=== PATIENT | female | born 1975 | race Caucasian/White ===

== ENCOUNTER 2017-05-11 02:29 | Emergency (ER) | payer OTHER, SELFPAY ==
[2017-05-11] MEDS ORDERED: BABY ASPIRIN 81 MG CHEW PO ONE (02:34)
[2017-05-11] MEDS ORDERED: Nitrostat 0.4 MG (ED) SL ONE ×2 (02:34→02:54)
[2017-05-11] MEDS ORDERED: Sodium Chloride 0.9% 1000 ML 1,000 ML IV SCH (02:45)
--- NOTE | 2017-05-11 02:46 | ERPHSYRPT ---
- History of Present Illness Time Seen by Provider: 05/11/17 02:35 Historian: patient Exam Limitations: clinical condition Physician History: PATIENT WITH HISTORY OF TYPE 2 DIABETES COMPLAINS SHARP PAINS IN CHEST AFTER AWAKENING FROM SLEEP ASSOCIATED WITH DIFFICULTY AND RAPID BREATHING. STATES PAIN WORSE UPON INSPIRATION AND MOTION OF TORSO. 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 HAS CHRONIC NUMBNESS IN BOTH HANDS, AND NEW NUMBNESS AROUND LIPS, FINGERS AND TOES. DENIES FEVER, CHILLS. Timing/Duration: today Activities at Onset: none Quality: sharpness Location: substernal Chest Pain Radiation: no radiation Severity of Pain-Max: moderate Severity of Pain-Current: moderate Modifying Factors: Improves With: breathing, change in position Associated Symptoms: hurts to breathe Nitro Today/Relief: no nitro taken today Aspirin Treatment Today: 81 mg x 4, provided by ED Allergies/Adverse Reactions: tomato Allergy (Verified 05/11/17 03:00) Home Medications: Metformin HCl [Metformin HCl ER] 500 mg PO BID 11/01/16 [History] Hx Tetanus, Diphtheria Vaccination/Date Given: Yes Hx Influenza Vaccination/Date Given: No Hx Pneumococcal Vaccination/Date Given: No - Review of Systems Constitutional: No Fever, No Chills Eyes: No Symptoms Ears, Nose, & Throat: No Symptoms Respiratory: Dyspnea, No Cough Cardiac: Chest Pain, No Edema, No Syncope Abdominal/Gastrointestinal: No Symptoms, No Abdominal Pain, No Nausea, No Vomiting, No Diarrhea Genitourinary Symptoms: No Symptoms, No Dysuria Musculoskeletal: No Symptoms, No Back Pain, No Neck Pain Skin: No Symptoms, No Rash Neurological: Parasthesia, No Dizziness, No Focal Weakness, No Sensory Changes Psychological: No Symptoms Endocrine: No Symptoms All Other Systems: Reviewed and Negative - Past Medical History Pertinent Past Medical History: Yes Neurological History: No Pertinent History ENT History: No Pertinent History Cardiac History: High Cholesterol Endocrine Medical History: Diabetes Type II Musculoskeletal History: No Pertinent History GI Medical History: No Pertinent History History: No Pertinent History Psycho-Social History: No Pertinent History Female Reproductive Disorders: No Pertinent History Other Medical History: CHRONIC HIP PAIN - Past Surgical History Past Surgical History: Yes Neuro Surgical History: No Pertinent History Respiratory: No Pertinent History Musculoskeletal: No Pertinent History Female Surgical History: Tubal Ligation Other Surgical History: oral surgery - Social History Smoking Status: Current every day smoker How long have you smoked: 20 years Exposure to second hand smoke: Yes Drug Use: marijuana Patient Lives Alone: No Significant Family History: hypertension (mother) - Female History Hx Now: No - Nursing Vital Signs Nursing Vital Signs: Initial Vital Signs Temperature 98.2 F Temperature Source Oral Pulse Rate 87 Respiratory Rate 18 Blood Pressure [Right Arm] 134/76 Pain Intensity 3 - Physical Exam General Appearance: mild distress, alert, other (HYPERVENTILATION) Eye Exam: PERRL/EOMI, eyes nml inspection Ears, Nose, Throat Exam: normal ENT inspection, moist mucous membranes Neck Exam: normal inspection, non-tender, supple, full range of motion Respiratory Exam: normal breath sounds, chest tenderness (PARASTERNAL TENDERNESS T-3 TO T-5), lungs clear, No respiratory distress Cardiovascular Exam: regular rate/rhythm, normal heart sounds Gastrointestinal/Abdomen Exam: soft, No tenderness, No mass Back Exam: normal inspection, No CVA tenderness, No vertebral tenderness Extremity Exam: normal inspection, normal range of motion Neurologic Exam: alert, oriented x 3, cooperative, normal mood/affect, sensation nml, No motor deficits Skin Exam: normal color, warm, dry SpO2 Interpretation: normal SpO2: 100 Oxygen Delivery: Room Air - Course EKG Interpreted by Me: RATE, NORMAL AXIS, 1st degree AV Block (RATE OF 98) - Radiology Exams Chest X-ray Interpretation: Interpreted by me, Negative, No Infiltrates Ordered Tests: Active Orders 24 hr Category Date Time Status Baling Machine Tender STAT Care 05/11/17 02:34 Active EKG-ER Only STAT Care 05/11/17 02:34 Active IV Insertion STAT Care 05/11/17 02:34 Active Oxygen-ED Only NASAL CANNULA 2 lpm Care 05/11/17 02:34 Active CHEST 1 VIEW (PORTABLE) Stat Exams 05/11/17 03:38 Taken ARTERIAL BLOOD GASES Stat Lab 05/11/17 02:33 Completed CBC W DIFF Stat Lab 05/11/17 02:40 Completed CMP Stat Lab 05/11/17 02:40 Completed D-DIMER QUANTITATION Stat Lab 05/11/17 02:40 Completed PROTIME WITH INR Stat Lab 05/11/17 02:40 Completed TROPONIN Q3H Lab 05/11/17 02:40 Completed TROPONIN Q3H Lab 05/11/17 05:45 Ordered TROPONIN Q3H Lab 05/11/17 08:45 Ordered TROPONIN Q3H Lab 05/11/17 11:45 Ordered TROPONIN Q3H Lab 05/11/17 14:45 Ordered Medication Summary Generic Name Dose Route Start Last Admin Trade Name Christine PRN Reason Stop Dose Admin Sodium Chloride 1,000 mls @ 100 mls/hr 05/11/17 02:45 05/11/17 02:56 Sodium Chloride 0.9% 1000 Ml IV 06/10/17 02:44 100 mls/hr .Q10H JEFFERY Administration Discontinued Medications Generic Name Dose Route Start Last Admin Trade Name Christine PRN Reason Stop Dose Admin Aspirin 324 mg 05/11/17 02:34 05/11/17 02:55 Baby Aspirin 81 Mg Chew PO 05/11/17 02:35 324 mg STAT ONE Administration Aspirin Confirm 05/11/17 02:54 Baby Aspirin 81 Mg Chew Administered 05/11/17 02:55 Dose 324 mg .ROUTE .STK-MED ONE Fentanyl Citrate 100 mcg 05/11/17 03:31 05/11/17 03:35 Sublimaze 100 Mcg/2 Ml IV 05/11/17 03:32 100 mcg STAT ONE Administration Fentanyl Citrate Confirm 05/11/17 03:33 Sublimaze 100 Mcg/2 Ml Administered 05/11/17 03:34 Dose 100 mcg .ROUTE .STK-MED ONE Ketorolac Tromethamine 30 mg 05/11/17 03:31 05/11/17 03:37 Toradol 30 Mg Injection IV 05/11/17 03:32 30 mg STAT ONE Administration Ketorolac Tromethamine Confirm 05/11/17 03:33 Toradol 30 Mg Injection Administered 05/11/17 03:34 Dose 30 mg .ROUTE .STK-MED ONE Lorazepam 2 mg 05/11/17 03:14 05/11/17 03:22 Ativan 2 Mg/1 Ml Vial IV 05/11/17 03:15 2 mg STAT ONE Administration Lorazepam Confirm 05/11/17 03:20 Ativan 2 Mg/1 Ml Vial Administered 05/11/17 03:21 Dose 2 mg .ROUTE .STK-MED ONE Nitroglycerin 0.4 mg 05/11/17 02:34 05/11/17 02:56 Nitrostat 0.4 Mg (Ed) SL 05/11/17 02:35 0.4 mg STAT ONE Administration Nitroglycerin Confirm 05/11/17 02:54 Nitrostat 0.4 Mg (Ed) Administered 05/11/17 02:55 Dose 0.4 mg SL .STK-MED ONE Nitroglycerin 1 gm 05/11/17 03:49 Nitro-Bid 2% Ud Packets TOP 05/11/17 03:50 STAT ONE Ondansetron HCl 4 mg 05/11/17 03:31 05/11/17 03:47 Zofran 4 Mg/2 Ml Vial IV 05/11/17 03:32 4 mg STAT ONE Administration Ondansetron HCl Confirm 05/11/17 03:47 Zofran 4 Mg/2 Ml Vial Administered 05/11/17 03:48 Dose 4 mg .ROUTE .STK-MED ONE Lab/Rad Data: Laboratory Result Diagrams 05/11/17 02:40 05/11/17 02:40 Laboratory Results 05/11/17 05/11/17 05/11/17 Range/Units 02:40 02:40 02:40 WBC (4.0-10.5) K/mm3 RBC (4.1-5.4) M/mm3 Hgb (12.0-16.0) gm/dl Hct (35-47) % MCV (78-100) fl MCH (26-32) pg MCHC (32-36) g/dl RDW (11.5-14.0) % Plt Count (150-450) K/mm3 MPV (6-9.5) fl Gran % (36.0-66.0) % Lymphocytes % (24.0-44.0) % Monocytes % (0.0-12.0) % Eosinophils % (0.00-5.0) % Basophils % (0.0-0.4) % Basophils # (0-0.4) INR 0.97 (0.8-3.0) D-Dimer 387 (0-500) ng/mL Puncture Site pCO2 (35-45) mmHg pO2 (75-100) mmHg Base Excess (-2.0-2.0) O2 Saturation (94-100) g/dF ABG pH (7.35-7.45) ABG HCO3 (22-28) ABG O2 Sat (Measured) (95-100) % John Test A-a Gradient a/A Ratio Hemoglobin Carboxyhemoglobin (0.0-6.9) % THgb Methemoglobin (1.4-1.5) % Potassium 3.8 (3.5-5.1) Temperature C POC O2 Flow Rate % Sodium 138 (136-145) mEq/L Chloride 103 (98-107) mEq/L Carbon Dioxide 19.8 L (21-32) mEq/L Anion Gap 19.0 H (5-15) MEQ/L BUN 11 (9-20) mg/dL Creatinine 0.82 (0.55-1.30) mg/dl Estimated GFR > 60 ML/MIN Glucose 272 H (70-110) MG/DL Calcium 9.2 (8.5-10.1) mg/dL Total Bilirubin 0.50 (0.2-1.0) mg/dL AST 65 H (15-37) U/L ALT 48 (12-78) U/L Alkaline Phosphatase 87 (46-116) U/L Troponin I < 0.017 (0.000-0.056) ng/ml Serum Total Protein 7.8 (6.4-8.2) gm/dL Albumin 3.8 (3.4-5.0) g/dL 05/11/17 05/11/17 Range/Units 02:40 02:33 WBC 8.0 (4.0-10.5) K/mm3 RBC 4.87 (4.1-5.4) M/mm3 Hgb 15.0 (12.0-16.0) gm/dl Hct 43.4 (35-47) % MCV 89.1 (78-100) fl MCH 30.8 (26-32) pg MCHC 34.6 (32-36) g/dl RDW 12.7 (11.5-14.0) % Plt Count 218 (150-450) K/mm3 MPV 9.4 (6-9.5) fl Gran % 59.8 (36.0-66.0) % Lymphocytes % 31.2 (24.0-44.0) % Monocytes % 7.0 (0.0-12.0) % Eosinophils % 1.6 (0.00-5.0) % Basophils % 0.4 (0.0-0.4) % Basophils # 0.03 (0-0.4) INR (0.8-3.0) D-Dimer (0-500) ng/mL Puncture Site RIGHT RADIAL pCO2 20 L* (35-45) mmHg pO2 120 H (75-100) mmHg Base Excess -0.6 (-2.0-2.0) O2 Saturation 95.6 (94-100) g/dF ABG pH 7.58 H* (7.35-7.45) ABG HCO3 18.8 L (22-28) ABG O2 Sat (Measured) 99.8 (95-100) % John Test YES A-a Gradient 5 a/A Ratio 0.96 Hemoglobin 14.8 Carboxyhemoglobin 3.1 (0.0-6.9) % THgb Methemoglobin 1.1 L (1.4-1.5) % Potassium 3.8 (3.5-5.1) Temperature 37.0 C POC O2 Flow Rate 21 % Sodium (136-145) mEq/L Chloride (98-107) mEq/L Carbon Dioxide (21-32) mEq/L Anion Gap (5-15) MEQ/L BUN (9-20) mg/dL Creatinine (0.55-1.30) mg/dl Estimated GFR ML/MIN Glucose (70-110) MG/DL Calcium (8.5-10.1) mg/dL Total Bilirubin (0.2-1.0) mg/dL AST (15-37) U/L ALT (12-78) U/L Alkaline Phosphatase (46-116) U/L Troponin I (0.000-0.056) ng/ml Serum Total Protein (6.4-8.2) gm/dL Albumin (3.4-5.0) g/dL - Progress Progress: improved, re-examined Progress Note: 05/11/17 03:2PATIENT GIVEN IV ATIVAN 2MG, 4 BABY ASPIRIN, NITROGLYCERIN 0.4MG SL 05/11/17 03:55 STATES HER PAIN IS MARKEDLY IMPROVED, REFUSES ADMISSION, RISK VS BENEFIT DISCUSSED WITH PATIENT. PATIENT SIGNS AMA. Counseled pt/family regarding: lab results, diagnosis, need for follow-up - Departure Time of Disposition: 04:00 Departure Disposition: In-patient Admission Clinical Impression: ACUTE CHEST PAIN, HYPERVENTIATIO SYNDROME Condition: Stable Critical Care Time: No Referrals: SHAE KHAN [Primary Care Provider] - Additional Instructions: TORADOL 10MG EVERY 6 HOURS FOR PAIN NEEDED. RETURN TO EMERGENCY FOR INCREASING PAIN DISCOMFORT. FOLLOWUP WITH YOUR FAMILY PHYSICIAN IN 4-5 DAYS. Prescriptions: Ketorolac Tromethamine [Toradol] 10 mg PO Q6H PRN PRN #20 tablet PRN Reason: Pain
[2017-05-11 02:47] LABS: A-aADO2 5; ARTERIAL BLD GAS O2 SATURATION 99.8 % (95-100); ARTERIAL BLOOD GAS BASE EXCESS -0.6 (-2.0-2.0); ARTERIAL BLOOD GAS FIO2 21 %; ARTERIAL BLOOD GAS PO2 120 mmHg (75-100)
[2017-05-11 02:48] LABS: ALLEN TEST OK? YES; ARTERIAL BLOOD GAS pH 7.58 (7.35-7.45)
[2017-05-11] MEDS ORDERED: Sodium Chloride 0.9% 1000 ML 1,000 ML ONE (02:54)
[2017-05-11] MEDS ORDERED: BABY ASPIRIN 81 MG CHEW ONE (02:54)
[2017-05-11 03:04] LABS: BASOPHIL % 0.4 % (0.0-0.4); Eosinophil % 1.6 % (0.00-5.0); Granulocytes % 59.8 % (36.0-66.0); INR 0.97 (0.8-3.0); Lymphocytes % 31.2 % (24.0-44.0); Mean Cell Volume 89.1 fl (78-100); Mean Corpuscular Hemoglobin 30.8 pg (26-32); Mean Platelet Volume 9.4 fl (6-9.5); Platelet Count 218 K/mm3 (150-450); Red Blood Count 4.87 M/mm3 (4.1-5.4); Red Cell Distribution Width 12.7 % (11.5-14.0)
[2017-05-11 03:12] LABS: ALBUMIN 3.8 g/dL (3.4-5.0); ALKALINE PHOSPHATASE 87 U/L (46-116); BLOOD UREA NITROGEN 11 mg/dL (9-20); CHLORIDE 103 mEq/L (98-107); Carbon Dioxide 19.8 mEq/L (21-32); Glucose 272 MG/DL (70-110); Potassium 3.8 mEq/L (3.5-5.1); SGOT/AST 65 U/L (15-37); SGPT/ALT 48 U/L (12-78); SODIUM 138 mEq/L (136-145); Total Protein 7.8 gm/dL (6.4-8.2)
[2017-05-11] MEDS ORDERED: Ativan 2 MG/1 ML VIAL IV ONE (03:14)
[2017-05-11] MEDS ORDERED: Ativan 2 MG/1 ML VIAL ONE (03:20)
[2017-05-11 03:30] VITALS: O2SAT 100
[2017-05-11] MEDS ORDERED: Zofran 4 MG/2 ML VIAL IV ONE (03:31)
[2017-05-11] MEDS ORDERED: SUBLIMAZE 100 MCG/2 ML IV ONE (03:31)
[2017-05-11] MEDS ORDERED: TORAdol 30 mg Injection IV ONE (03:31)
[2017-05-11] MEDS ORDERED: TORAdol 30 mg Injection ONE (03:33)
[2017-05-11] MEDS ORDERED: SUBLIMAZE 100 MCG/2 ML ONE (03:33)
[2017-05-11] MEDS ORDERED: Zofran 4 MG/2 ML VIAL ONE (03:47)
[2017-05-11] MEDS ORDERED: NITRO-BID 2% UD PACKETS TOP ONE (03:49)
[2017-05-11 04:01] VITALS: BP 138/76; PULSE 92
--- NOTE | 2017-05-11 08:57 | XRAY ---
Indication: Dyspnea. Comparison: August 14, 2013. Portable chest remains slightly underinflated and clear. Heart is not enlarged. Vascularity normal. Bony thorax intact. Impression: Stable nonacute chest.
== END 2017-05-11 04:15 | disposition left against medical advice (07) ==
LOC: ED 02:29
DX: R07.89 Other chest pain (principal); F45.8 Other somatoform disorders; E11.9 Type 2 diabetes mellitus without complications; R20.0 Anesthesia of skin; E78.00 Pure hypercholesterolemia, unspecified; Z79.84 Long term (current) use of oral hypoglycemic drugs
CPT/HCPCS: 36000; 36415; 36600; 71010; 80053; 82375; 82803; 84484; 85025; 85379; 85610; 93005; 93041; 96360; 96374; 96375; 96376; 99284; J1885; J2060; J2405; J3010; A9270-GY

== ENCOUNTER 2017-08-28 10:16 | Observation (INO) | payer OTHER ==
--- NOTE | 2017-08-28 11:13 | ERPHSYRPT ---
- History of Present Illness Time Seen by Provider: 08/28/17 10:36 Source: patient Exam Limitations: no limitations Patient Subjective Stated Complaint: Pt states "I have another abscess on my butt. I have had three and they have never went away. The last one busted on its own but this one is really tender and swollen" Triage Nursing Assessment: Pt alert and oriented X 3, skin pwd. pt ambulates with a waddleing gait. Pt able to speak in full clear sentencs. Physician History: 41-year-old white female who states she's had several abscesses on her buttocks for several months complains of abscess in her buttockswhich is enlarged and painful symptoms for several days. Patient states she has had these abscesses before she feels like they have never really gone away. Past medical history includes hypercholesterolemia, diabetes, chronic hip pain Past surgical history includes tubal ligation, oral surgery Timing/Duration: day(s) (several days) Severity: moderate Modifying Factors: Improves With: nothing Associated Symptoms: other (large abscess on buttocks), No nausea, No vomiting, No abdominal pain, No shortness of breath, No heartburn, No diaphoresis, No cough, No chills, No chest pain, No fever, No headaches, No loss of appetite, No malaise, No rash, No syncope, No seizure Allergies/Adverse Reactions: tomato Allergy (Verified 05/11/17 03:00) Home Medications: Metformin HCl [Metformin HCl ER] 500 mg PO BID 11/01/16 [History] Hx Tetanus, Diphtheria Vaccination/Date Given: Yes Hx Influenza Vaccination/Date Given: No Hx Pneumococcal Vaccination/Date Given: No Immunizations Up to Date: Yes - Review of Systems Constitutional: No Fever, No Chills Eyes: No Symptoms Ears, Nose, & Throat: No Symptoms Respiratory: No Cough, No Dyspnea Cardiac: No Chest Pain, No Edema, No Syncope Abdominal/Gastrointestinal: No Abdominal Pain, No Nausea, No Vomiting, No Diarrhea Genitourinary Symptoms: No Dysuria Musculoskeletal: No Back Pain, No Neck Pain Skin: Other (large abscess on buttocks) Neurological: No Dizziness, No Focal Weakness, No Sensory Changes Psychological: No Symptoms Endocrine: No Symptoms All Other Systems: Reviewed and Negative - Past Medical History Pertinent Past Medical History: Yes Neurological History: No Pertinent History ENT History: No Pertinent History Cardiac History: High Cholesterol Endocrine Medical History: Diabetes Type II Musculoskeletal History: No Pertinent History GI Medical History: No Pertinent History History: No Pertinent History Psycho-Social History: No Pertinent History Female Reproductive Disorders: No Pertinent History Other Medical History: CHRONIC HIP PAIN - Past Surgical History Past Surgical History: Yes Neuro Surgical History: No Pertinent History Respiratory: No Pertinent History Musculoskeletal: No Pertinent History Female Surgical History: Tubal Ligation Other Surgical History: oral surgery - Social History Smoking Status: Current every day smoker How long have you smoked: 23 years Exposure to second hand smoke: Yes Drug Use: marijuana Patient Lives Alone: No Significant Family History: hypertension (mother) - Female History Hx Last Menstrual Period: 08/24/2017 Hx Now: No - Nursing Vital Signs Nursing Vital Signs: Initial Vital Signs Temperature 97.8 F 08/28/17 10:25 Pulse Rate 92 H 08/28/17 10:25 Respiratory Rate 18 08/28/17 10:25 Blood Pressure 138/77 08/28/17 10:25 O2 Sat by Pulse Oximetry 98 08/28/17 10:25 Pain Scale Pain Intensity 4 - Physical Exam General Appearance: no apparent distress, alert Eye Exam: PERRL/EOMI, eyes nml inspection Ears, Nose, Throat Exam: normal ENT inspection, TMs normal, pharynx normal, moist mucous membranes Neck Exam: normal inspection, non-tender, supple, full range of motion Respiratory Exam: normal breath sounds, lungs clear, No respiratory distress Cardiovascular Exam: regular rate/rhythm, normal heart sounds, normal peripheral pulses Gastrointestinal/Abdomen Exam: soft, normal bowel sounds, No tenderness, No mass Extremity Exam: normal inspection, normal range of motion, pelvis stable, other (patient with 4-5 cm abscess firm area right buttocks exquisitly tender to palpation) Neurologic Exam: alert, oriented x 3, cooperative, normal mood/affect, nml cerebellar function, nml station & gait, sensation nml, No motor deficits Skin Exam: other (4-5 cm abscess right buttock exquisitley tender to palpation) SpO2 Interpretation: normal (98%) SpO2: 98 Oxygen Delivery: Room Air - Course Nursing assessment & vital signs reviewed: Yes Ordered Tests: Active Orders 24 hr Category Date Time Status IV Insertion STAT Care 08/28/17 11:36 Active BLOOD CULTURE Stat Lab 08/28/17 12:04 Ordered BMP Stat Lab 08/28/17 11:50 Received CBC W DIFF Stat Lab 08/28/17 11:50 Received Medication Summary Generic Name Dose Route Start Last Admin Trade Name Freq PRN Reason Stop Dose Admin Vancomycin HCl 250 mls @ 167 mls/hr 08/28/17 12:06 Vancomycin 1gm/ Ns 250ml IV 08/28/17 13:35 STAT ONE Discontinued Medications Generic Name Dose Route Start Last Admin Trade Name Freq PRN Reason Stop Dose Admin Morphine Sulfate 4 mg 08/28/17 12:06 Morphine Sulfate 4 Mg Inj IV 08/28/17 12:07 STAT ONE Ondansetron HCl 4 mg 08/28/17 12:06 Zofran 4 Mg/2 Ml Vial IV 08/28/17 12:07 STAT ONE - Progress Progress: improved Progress Note: 08/28/17 12:07 41-year-old white female with history of diabetes states that she's had an abscess on her right buttock symptoms going on chronically for several months however the last few days this is become markedly enlarged and painful. Patient is exquisitely tender on the buttocks on the right with a large abscess approximately 5 cm. I've discussed the case with Dr. Winter will place patient on vancomycin give patient a shot of morphine. Plan to admit on the floor and obtain surgery consult. - Departure Time of Disposition: 12:09 Departure Disposition: Observation Clinical Impression: Abscess of right buttock Condition: Fair Critical Care Time: No Referrals: SHAE KHAN [Primary Care Provider] -
[2017-08-28 12:04] LABS: BASOPHIL % 0.5 % (0.0-0.4); Eosinophil % 2.1 % (0.00-5.0); Granulocytes % 61.4 % (36.0-66.0); Lymphocytes % 28.1 % (24.0-44.0); Mean Cell Volume 90.4 fl (78-100); Mean Corpuscular Hemoglobin 29.6 pg (26-32); Mean Platelet Volume 9.2 fl (6-9.5); Monocytes % 7.9 % (0.0-12.0); Platelet Count 199 K/mm3 (150-450); Red Cell Distribution Width 12.6 % (11.5-14.0); White Blood Count 6.3 K/mm3 (4.0-10.5)
[2017-08-28] MEDS ORDERED: Vancomycin 1GM/ Ns 250ML*** 250 ML IV ONE ×2 (12:06→12:13)
[2017-08-28] MEDS ORDERED: MORPHINE SULFATE 4 MG INJ IV ONE (12:06)
[2017-08-28] MEDS ORDERED: Zofran 4 MG/2 ML VIAL IV ONE (12:06)
[2017-08-28] MEDS ORDERED: MORPHINE SULFATE 4 MG INJ ONE (12:13)
[2017-08-28] MEDS ORDERED: Zofran 4 MG/2 ML VIAL ONE ×2 (12:13→21:59)
[2017-08-28] MEDS ORDERED: PHARMACY DOSING REQUIRED: VANCOMYCIN IV ONE (13:07)
[2017-08-28] MEDS ORDERED: NovoLOG Insulin SQ PRN (13:07)
[2017-08-28 13:13] LABS: ANION GAP 13.7 MEQ/L (5-15); BLOOD UREA NITROGEN 6 mg/dL (9-20); CHLORIDE 101 mEq/L (98-107); Glucose 212 MG/DL (70-110); Potassium 3.7 mEq/L (3.5-5.1); SODIUM 136 mEq/L (136-145)
[2017-08-28] MEDS: Sodium Chloride 0.9% 1000 ML 1,000 ML IV SCH ×2 (13:54→23:45)
[2017-08-28] MEDS ORDERED: MORPHINE SULFATE 10 MG/ML IV ONE (14:38)
[2017-08-28] MEDS ORDERED: Phenergan 25 MG INJ IV PRN (14:39)
[2017-08-28] MEDS ORDERED: Zofran 4 MG/2 ML VIAL IV PRN ×2 (14:40→22:37)
[2017-08-28] MEDS ORDERED: VANCOCIN 1 GM VIAL*** 1 GM in Sodium Chloride 0.9% 250 ML 250 ML IV ONE (14:45)
[2017-08-28] MEDS ORDERED: BRIDION 200MG/2ML IV ONE (15:29)
[2017-08-28] MEDS ORDERED: Zemuron 100 MG/10 ML IV ONE (15:29)
[2017-08-28] MEDS ORDERED: Quelicin Fliptop 200 MG/10 ML IV ONE (15:29)
[2017-08-28] MEDS ORDERED: SUBLIMAZE 100 MCG/2 ML IV ONE (15:29)
[2017-08-28] MEDS ORDERED: Versed 2 MG/2 ML Injection IV ONE (15:29)
[2017-08-28] MEDS ORDERED: DIPRIVAN 200 MG/20 ML IV ONE (15:29)
--- NOTE | 2017-08-28 15:56 | PCM.HP ---
History of Present Illness - Chief Complaint Chief Complaint: abscess right buttock History of Present Illness: is a 41 year old female pt of Dr. Bustillo who was admitted through ER this morning for a large abscess on her R buttock. It started last night with some soreness. She has had 2 previous abscesses in the same spot, one of which required hospitalization and she was scheduled for an I&D when it ruptured. 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 - Review of Systems Constitutional: Other (weight gain 30 lb), No Fever Cardiac: Edema (chronic, LE) Abdominal/Gastrointestinal: Appetite Changes (no appetite since last night) Skin: Other (abscess R buttock) Psychological: No Anxiety, No Depression, No Suicidal Ideations Medications & Allergies Home Medications: Home Medication List Metformin HCl [Metformin HCl ER] 500 mg PO BID 11/01/16 [History Confirmed 08/28] Allergies/Adverse Reactions: Allergies Allergy/AdvReac Type Severity Reaction Status Date / Time tomato Allergy Verified 08/28/17 13:58 - Past Medical History Past Medical History: Yes Neurological History: No Pertinent History ENT History: No Pertinent History Cardiac History: High Cholesterol Respiratory History: No Pertinent History Endocrine Medical History: Diabetes Type II Musculoskelatal History: No Pertinent History GI Medical History: No Pertinent History History: No Pertinent History Pyscho-Social History: No Pertinent History Reproductive Disorders: No Pertinent History Comment: CHRONIC HIP PAIN - Female History Hx Last Menstrual Period: currently menstruating Are you now?: No - Past Surgical History Past Surgical History: Yes Neuro Surgical History: No Pertinent History Cardiac History: No Pertinent History Respiratory Surgery: No Pertinent History GI Surgical History: Appendectomy Musculskeletal Surgical Hx: No Pertinent History Female Surgical History: Tubal Ligation Other Surgical History: oral surgery, ear drum cauterization, - Social History Smoking Status: Current every day smoker How long have you smoked: 23 years Exposure to second hand smoke: Yes Alcohol: Rarely Drug Use: marijuana Significant Family History: hypertension (mother) - Physical Exam Vital Signs: Vital Signs - 24 hr Temp Pulse Resp BP Pulse Ox 08/28/17 13:17 98.1 F 84 18 128/66 97 08/28/17 12:49 98.1 F 70 16 132/81 97 08/28/17 12:11 97.9 F 82 18 129/73 94 L 08/28/17 12:09 98 08/28/17 10:25 97.8 F 92 H 18 138/77 98 General Appearance: no apparent distress, alert Neurologic Exam: oriented x 3, cooperative Eye Exam: eyes nml inspection Neck Exam: normal inspection, non-tender, supple, No lymphadenopathy Respiratory Exam: normal breath sounds, lungs clear, No crackles/rales, No rhonchi, No wheezing Cardiovascular Exam: regular rate/rhythm, normal heart sounds, No murmur Gastrointestinal/Abdomen Exam: soft, No tenderness Skin Exam: warm, dry, other (R medial buttock, inferior, with approx 4x6cm erythematous enlarged area with surrounding induration of approx [id number]. exquisitely tender.) Assessment/Plan (1) Abscess of buttock, right Current Visit: Yes Status: Acute Assessment & Plan: Surgery to I&D, thank you. On vancomycin IV. Code(s): L02.31 - CUTANEOUS ABSCESS OF BUTTOCK (2) Type 2 diabetes mellitus Current Visit: No Status: Acute Qualifiers: Diabetes mellitus complication status: without complication Diabetes mellitus fpc insulin use: without fpc use Qualified Code(s): E11.9 - Type 2 diabetes mellitus without complications Assessment & Plan: will check BS ac/hs.
[2017-08-28] MEDS ORDERED: BICITRA 30 ML CUP ONE (17:54)
[2017-08-28] MEDS ORDERED: Lactated Ringers 2,000 ML IV ONE (17:54)
[2017-08-28] MEDS ORDERED: Pepcid 20 MG VIAL IV ONE (17:54)
[2017-08-28] MEDS ORDERED: MORPHINE SULFATE 10 MG/ML IV PRN (18:55)
[2017-08-28] MEDS ORDERED: MORPHINE SULFATE 10 MG/ML ONE (19:01)
[2017-08-28] MEDS ORDERED: Lactated Ringers 1,000 ML IV SCH (20:00)
[2017-08-28] MEDS ORDERED: CLINDAMYCIN-D5W 900 MG/50 ML*** 900 MG/50 ML BAG IV ONE (21:05)
[2017-08-28] MEDS ORDERED: NORCO 5/325 MG PO PRN (22:44)
[2017-08-28] MEDS: VANCOCIN 1 GM VIAL*** 1.5 GM in Sodium Chloride 0.9% 500 ML 500 ML IV SCH (23:45)
[2017-08-29] MEDS ORDERED: MORPHINE SULFATE 2 MG INJ ONE (01:10)
[2017-08-29] MEDS: MORPHINE SULFATE 2 MG INJ IV PRN ×2 (01:14→07:02)
[2017-08-29] MEDS: VANCOCIN 1 GM VIAL*** 1.5 GM in Sodium Chloride 0.9% 500 ML 500 ML IV SCH ×2 (05:13→14:25)
[2017-08-29 05:46] LABS: BASOPHIL % 0.3 % (0.0-0.4); Eosinophil % 1.5 % (0.00-5.0); Granulocytes % 69.3 % (36.0-66.0); Lymphocytes % 22.8 % (24.0-44.0); Mean Cell Volume 91.3 fl (78-100); Mean Corpuscular Hemoglobin 29.7 pg (26-32); Mean Platelet Volume 9.3 fl (6-9.5); Monocytes % 6.1 % (0.0-12.0); Platelet Count 173 K/mm3 (150-450); Red Blood Count 4.04 M/mm3 (4.1-5.4); Red Cell Distribution Width 12.4 % (11.5-14.0); White Blood Count 8.7 K/mm3 (4.0-10.5)
[2017-08-29 06:10] LABS: ALBUMIN 2.9 g/dL (3.4-5.0); ALKALINE PHOSPHATASE 67 U/L (46-116); ANION GAP 11.1 MEQ/L (5-15); BLOOD UREA NITROGEN 5 mg/dL (9-20); CHLORIDE 104 mEq/L (98-107); Carbon Dioxide 26.8 mEq/L (21-32); Glucose 233 MG/DL (70-110); Potassium 4.1 mEq/L (3.5-5.1); SGOT/AST 47 U/L (15-37); SGPT/ALT 38 U/L (12-78); SODIUM 138 mEq/L (136-145); Total Protein 6.1 gm/dL (6.4-8.2)
[2017-08-29] MEDS ORDERED: MORPHINE SULFATE 2 MG INJ IV PRN (07:04)
--- NOTE | 2017-08-29 08:12 | CONS ---
CONSULT DATE: 08/28/2017 HISTORY: The patient is a 41 year-old patient of Dr. Maggy farfan. She has diabetes. She has had two infections on her buttock - perirectal area in the past. The last time drained on its own improved on its own. She has pain and swelling for a few days. She presented and admitted to the hospital on IV antibiotic and asked for surgery consult. PAST MEDICAL HISTORY: Hip pain, hypercholesterolemia. PAST SURGICAL HISTORY: Tubal in the past. Oral surgery. She has poor dentition. MEDICATIONS: Metformin. ALLERGIES: TOMATO. FAMILY HISTORY: Hypertension. SOCIAL HISTORY: Every day smoker and also uses marijuana. PAST SURGICAL HISTORY: REVIEW OF SYSTEMS: Twelve systems reviewed. No chest pain or palpitations other systems negative or noncontributory as above and per preadmission assessment. PHYSICAL EXAMINATION: GENERAL: No acute distress. HEENT: Sclera nonicteric. NECK: No JVD. CHEST: Equal excursion, nonlabored breathing. CVS: Regular rhythm. ABDOMEN: Soft. No peritoneal signs. She is obese. EXTREMITIES: No significant edema. NEURO: Alert, moving extremities symmetrically. SKIN: In the buttock area there is a raised painful fluctuant area whether this is perirectal or true buttock abscess is unclear. Anyway I feel she would benefit from drainage and possible debridement. IMPRESSION: A 41 year-old diabetic with infection right buttock and/or perirectal area. I felt she would benefit from drainage and possible debridement. Risks and benefits explained in detail but not limited to bleeding or infection, possibility that this could be developing fistula in ano that might require other treatment or even referral to a specialist down the road. General risk of anesthesia, deep venous thrombosis, pulmonary embolism, pneumonia, risk of aches and pains, possible need for further treatments or debridement in the future as well a possible need for packing and antibiotics. She understands all the above but not limited to as well as general risk of anesthesia, deep venous thrombosis, pulmonary embolism, pneumonia, aches and pains but not limited to and will proceed with drainage, possible debridement right buttock and/or perirectal area when OR time available.
--- NOTE | 2017-08-29 08:26 | OP ---
SURGERY DATE/TIME: 08/28/20172030 PREOPERATIVE DIAGNOSIS: Recurrent right buttock/perirectal area infection versus ruptured cyst site. POSTOPERATIVE DIAGNOSIS: Ruptured cyst/sinus tract site with underlying abscess. PROCEDURE: Excisional biopsy of ruptured cyst/sinus tract site approximately 3 cm (with drainage of underlying abscess with irrigation, culture and packing). SURGEON: Dr. Juan Carlos Gaines. ANESTHESIA: General. ESTIMATED BLOOD LOSS: Minimal. INDICATIONS: As noted above. Risks and benefits explained in detail and not limited to and consent obtained. DESCRIPTION OF PROCEDURE AND FINDINGS: The patient is taken to the operating room. General anesthesia was introduced. She was placed in lateral position right side down. Prepped and draped in usual sterile fashion. After official time out and no disagreement with planned procedure, she had a thin portion of skin here. Dissection carried down. What appeared to be either a ruptured cyst or sinus tract area this was excised. She had some foul purulence around this and it was cultured, drained, irrigated out. The ruptured cyst site was excised this was about 3 cm in size. There did not appear to be any evidence of any residual ruptured cyst or sinus tract at this point. There was no obvious direct communication towards the rectum although the patient had been counseled that this could be a variation of a perirectal infection and could develop fistula in ano. She understood the initial treatment as open the wound. At this point there appeared to be either cyst or sinus tract that was excised and passed off for pathology. Copious amount of irrigation irrigating until clear. Some pinpoint cautery was used. There was no specific vessel to cauterize or ligate at this point. A small piece of Surgicel was placed as well as some wet to dry saline soaked gauze. The patient tolerated the procedure well. There were no immediate complications. Findings discussed with the family out in the waiting area. Continue her antibiotics and local wound care. When she is able to be discharged by her medical physician she can follow up in the office in a couple of weeks otherwise continue wet to dry on a daily basis unless the wound care therapy had any other recommendations.
--- NOTE | 2017-08-29 08:36 | PCM.NOTE ---
Date and Time: 08/29/17832 Subjective Assessment: She is feeling much better. Did vomit after breakfast this morning. Objective Exam General Appearance: no apparent distress, alert, anxiety Neurologic Exam: cooperative Skin Exam: other (R buttock with surgical wound approx 3x4 cm. decreased erythema; induration approx of total approx 5cm) Respiratory Exam: normal breath sounds, lungs clear, No crackles/rales, No rhonchi, No wheezing Cardiovascular Exam: regular rate/rhythm, normal heart sounds, No murmur OBJECTIVE DATA Vital Signs: Vital Signs - 24 hr Temp Pulse Resp BP Pulse Ox 08/29/17 07:34 98.4 F 84 16 130/84 94 L 08/29/17 04:00 98.5 F 83 16 115/59 95 08/29/17 00:15 97.8 F 90 16 142/65 97 08/28/17 23:45 89 106/54 93 L 08/28/17 23:15 86 116/59 94 L 08/28/17 23:00 84 118/57 93 L 08/28/17 22:45 93 H 140/71 94 L 08/28/17 22:30 98.5 F 91 H 18 139/70 97 08/28/17 22:15 98.3 F 91 H 16 134/70 97 08/28/17 20:00 98.1 F 82 17 122/68 97 08/28/17 17:15 98.8 F 84 20 127/66 94 L 08/28/17 16:00 98.8 F 84 20 127/66 94 L 08/28/17 13:17 98.1 F 84 18 128/66 97 08/28/17 12:49 98.1 F 70 16 132/81 97 08/28/17 12:11 97.9 F 82 18 129/73 94 L 08/28/17 12:09 98 08/28/17 10:25 97.8 F 92 H 18 138/77 98 Pain Assessment - Last Documented Pain Intensity 4 Pain Scale Used 0-10 Pain Scale Intake and Output: Intake & Output 08/26/17 08/27/17 08/28/17 08/29/17 11:59 11:59 11:59 11:59 Intake Total 360 Output Total 100 Balance 260 Weight 118.132 kg Lab Results: Accuchecks Date 08/29/17 Date 08/28/17 Time 07:30 Time 22:30 Accucheck Value: 200 Accucheck Value: 242 Accucheck Value: 175 Lab Results-Last 24 Hours 08/29/17 08/29/17 Range/Units 05:08 05:08 WBC 8.7 (4.0-10.5) K/mm3 RBC 4.04 L (4.1-5.4) M/mm3 Hgb 12.0 (12.0-16.0) gm/dl Hct 36.9 (35-47) % MCV 91.3 (78-100) fl MCH 29.7 (26-32) pg MCHC 32.5 (32-36) g/dl RDW 12.4 (11.5-14.0) % Plt Count 173 (150-450) K/mm3 MPV 9.3 (6-9.5) fl Gran % 69.3 H (36.0-66.0) % Lymphocytes % 22.8 L (24.0-44.0) % Monocytes % 6.1 (0.0-12.0) % Eosinophils % 1.5 (0.00-5.0) % Basophils % 0.3 (0.0-0.4) % Basophils # 0.03 (0-0.4) Sodium 138 (136-145) mEq/L Potassium 4.1 (3.5-5.1) mEq/L Chloride 104 (98-107) mEq/L Carbon Dioxide 26.8 (21-32) mEq/L Anion Gap 11.1 (5-15) MEQ/L BUN 5 L (9-20) mg/dL Creatinine 0.59 (0.55-1.30) mg/dl Estimated GFR > 60 ML/MIN Glucose 233 H (70-110) MG/DL Calcium 8.0 L (8.5-10.1) mg/dL Total Bilirubin 0.50 (0.2-1.0) mg/dL AST 47 H (15-37) U/L ALT 38 (12-78) U/L Alkaline Phosphatase 67 (46-116) U/L Serum Total Protein 6.1 L (6.4-8.2) gm/dL Albumin 2.9 L (3.4-5.0) g/dL Multi-Disciplinary Progress Notes: Multi-Disciplinary Progress Notes 08/28/17 14:46 Pharmacy Note by FULL TIME,PHARM 08/28: Pharmacy to dose vancomycin. 41 yo pt has abscess on buttox along with history of abscesses that have not healed. Wt 256lbs SCr 0.61 & CrCl 124ml/min. Loading dose 2grams & maintenance 1.5g q8h to produce a predicted peak of 27.5 mcg/ml and a predicted trough of 13.63 mcg/ml. Trough level to be checked 08/29 @1330. Thank you! Vero, pharmacy technologist Initialized on 08/28/17 14:46 - END OF NOTE Assessment/Plan (1) Abscess of buttock, right Current Visit: Yes Status: Acute Assessment & Plan: Looks great after I&D, thank you, and erythema and induration much improved. On vancomycin, has remote hx MRSA. Code(s): L02.31 - CUTANEOUS ABSCESS OF BUTTOCK (2) Type 2 diabetes mellitus Current Visit: No Status: Acute Qualifiers: Diabetes mellitus complication status: without complication Diabetes mellitus long term care pharmacist insulin use: without long term care pharmacist use Qualified Code(s): E11.9 - Type 2 diabetes mellitus without complications (3) Vomiting Current Visit: Yes Status: Acute Qualifiers: Vomiting type: unspecified Vomiting Intractability: non-intractable Nausea presence: with nausea Qualified Code(s): R11.2 - Nausea with vomiting, unspecified Assessment & Plan: Will keep her and advance diet slowly. Code(s): R11.10 - VOMITING, UNSPECIFIED
[2017-08-29 11:15] VITALS: O2SAT 97
[2017-08-29] MEDS ORDERED: TROUGH DRUG LEVELS IJ ONE (13:30)
[2017-08-29] MEDS: Sodium Chloride 0.9% 1000 ML 1,000 ML IV SCH (14:24)
[2017-08-29 16:20] VITALS: BP 135/68; PULSE 84
--- NOTE | 2017-08-29 16:20 | PCM.DS ---
Discharge Summary Date of Admission: 08/28/17 12:59 Admitting Physician: SHAE KHAN Primary Care Provider: SHAE KHAN Allergies Allergies tomato Allergy (Verified 08/28/17 13:58) Hospital Summary - Hospital Course Hospital Course: Pt admitted with 1 day history of abscess on R buttock. Drained by surgery, thank you. Her pain is much less, culture is pending, and she is ready to go home. Michelle po fine. - Vitals & Intake/Output Vital Signs: Vital Signs Temperature 98.1 F 08/29/17 11:14 Pulse Rate 82 08/29/17 11:14 Respiratory Rate 18 08/29/17 11:14 Blood Pressure 103/58 08/29/17 11:14 O2 Sat by Pulse Oximetry 97 08/29/17 11:14 Intake & Output: Intake & Output 08/27/17 08/28/17 08/29/17 08/30/17 11:59 11:59 11:59 11:59 Intake Total 360 360 Output Total 100 Balance 260 360 Weight 118.132 kg - Lab Result Diagrams: 08/29/17 05:08 08/29/17 05:08 Lab Results-Last 24 Hrs: Accuchecks Date 08/29/17 Date 08/29/17 Date 08/28/17 Time 11:30 Time 07:30 Time 22:30 Accucheck Value: 188 Accucheck Value: 200 Accucheck Value: 242 Accucheck Value: 175 Lab Results-Last 24 Hours 08/29/17 08/29/17 08/29/17 Range/Units 05:08 05:08 13:22 WBC 8.7 (4.0-10.5) K/mm3 RBC 4.04 L (4.1-5.4) M/mm3 Hgb 12.0 (12.0-16.0) gm/dl Hct 36.9 (35-47) % MCV 91.3 (78-100) fl MCH 29.7 (26-32) pg MCHC 32.5 (32-36) g/dl RDW 12.4 (11.5-14.0) % Plt Count 173 (150-450) K/mm3 MPV 9.3 (6-9.5) fl Gran % 69.3 H (36.0-66.0) % Lymphocytes % 22.8 L (24.0-44.0) % Monocytes % 6.1 (0.0-12.0) % Eosinophils % 1.5 (0.00-5.0) % Basophils % 0.3 (0.0-0.4) % Basophils # 0.03 (0-0.4) Sodium 138 (136-145) mEq/L Potassium 4.1 (3.5-5.1) mEq/L Chloride 104 (98-107) mEq/L Carbon Dioxide 26.8 (21-32) mEq/L Anion Gap 11.1 (5-15) MEQ/L BUN 5 L (9-20) mg/dL Creatinine 0.59 (0.55-1.30) mg/dl Estimated GFR > 60 ML/MIN Glucose 233 H (70-110) MG/DL Calcium 8.0 L (8.5-10.1) mg/dL Total Bilirubin 0.50 (0.2-1.0) mg/dL AST 47 H (15-37) U/L ALT 38 (12-78) U/L Alkaline Phosphatase 67 (46-116) U/L Serum Total Protein 6.1 L (6.4-8.2) gm/dL Albumin 2.9 L (3.4-5.0) g/dL Vancomycin Trough 8.0 L (10-20) UG/ML Micro Results-Entire Visit: Accuchecks Date 08/29/17 Date 08/29/17 Date 08/28/17 Time 11:30 Time 07:30 Time 22:30 Accucheck Value: 188 Accucheck Value: 200 Accucheck Value: 242 Accucheck Value: 175 - Procedures and Test Procedures and Tests throughout Hospitalization: Therapy Orders & Screens 08/28/17 19:39 EKG ROUTINE Comment: Diagnosis: abscess right buttock Discharge Exam General Appearance: no apparent distress, alert Neurologic Exam: oriented x 3, cooperative Skin Exam: warm, dry, other (R buttock wrapped this afternoon; nttp (this morning was decreased in size, erythema, and induration)) Respiratory Exam: normal breath sounds, lungs clear, No crackles/rales, No rhonchi, No wheezing Cardiovascular Exam: regular rate/rhythm, normal heart sounds, No murmur Extremity Exam: No pedal edema, No swelling Final Diagnosis/Problem List - Final Discharge Diagnosis/Problem (1) Abscess of buttock, right Current Visit: Yes Status: Acute Assessment & Plan: Home on po bactrim. f/u in 1 wk in office. Off work x 5d (until Sunday). (2) Type 2 diabetes mellitus Current Visit: No Status: Chronic (3) Vomiting Current Visit: Yes Status: Resolved - Discharge Disposition: Home, Self-Care Condition: Stable Prescriptions: New Sulfamethoxazole/Trimethoprim [Bactrim Ds Tablet] 1 each PO BID #20 tablet Continue Metformin HCl [Metformin HCl ER] 500 mg PO BID Follow up with: HIGINIO DUNN [COURTESY STAFF] - 09/10/17 8:50 am ([facility]) HOLLY OLIVO [ACTIVE STAFF] - 09/05/17 11:00 am
== END 2017-08-29 15:30 | disposition home or self-care (01) ==
LOC: ED 10:16 → MED SURG 12:59
PROVIDERS: ADMIT Internal Medicine; ATTEND Internal Medicine
PROC: 0HB8XZZ Excision of Buttock Skin, External Approach (ICD-10-PCS; principal; 2017-08-28)
DX: L02.31 Cutaneous abscess of buttock (principal); E11.9 Type 2 diabetes mellitus without complications; R11.10 Vomiting, unspecified; Z79.4 Long term (current) use of insulin
CPT/HCPCS: 00400; 36000; 36415; 80048; 80053; 80202; 82962; 83036; 85025; 87040; 87070; 87077; 88304; 93005; 93268; 96365; 96374; 96375; 99285; G0378; J0330; J2250; J2270; J2405; J2704; J3010; J3370; A9270-GY

== ENCOUNTER 2018-03-18 10:57 | Emergency (ER) | payer OTHER ==
[2018-03-18] MEDS ORDERED: Zofran 4 MG/2 ML VIAL IV ONE (11:13)
[2018-03-18] MEDS ORDERED: TORAdol 30 mg Injection IV ONE (11:13)
[2018-03-18] MEDS ORDERED: Sodium Chloride 0.9% 1000 ML 1,000 ML IV STA (11:13)
[2018-03-18] MEDS ORDERED: PROTONIX 40 MG IV IV ONE ×2 (11:13→11:24)
--- NOTE | 2018-03-18 11:17 | ERPHSYRPT ---
- History of Present Illness Time Seen by Provider: 03/18/18 11:15 Historian: patient Exam Limitations: no limitations Patient Subjective Stated Complaint: here for abd pain for 3 days with nausea Triage Nursing Assessment: pt alert, walked in, resp easy,skin w/d/p. and soft Physician History: mild to mod diffuse abdominal ache today, rad to back, off and on, +nausea, no fever, no injury Allergies/Adverse Reactions: tomato Allergy (Verified 03/18/18 11:13) Home Medications: Metformin HCl [Metformin HCl ER] 500 mg PO BID 11/01/16 [History] Hx Tetanus, Diphtheria Vaccination/Date Given: Yes Hx Influenza Vaccination/Date Given: No Hx Pneumococcal Vaccination/Date Given: No Immunizations Up to Date: Yes - Review of Systems Constitutional: No Fever Eyes: No Vision Changes Ears, Nose, & Throat: No Mouth Pain Respiratory: No Dyspnea Cardiac: No Chest Pain Abdominal/Gastrointestinal: Abdominal Pain, Nausea, No Vomiting Genitourinary Symptoms: No Dysuria Musculoskeletal: Back Pain Skin: No Rash Neurological: No Dizziness - Past Medical History Pertinent Past Medical History: Yes Neurological History: No Pertinent History ENT History: No Pertinent History Cardiac History: High Cholesterol Respiratory History: No Pertinent History Endocrine Medical History: Diabetes Type II Musculoskeletal History: Other GI Medical History: No Pertinent History History: No Pertinent History Psycho-Social History: No Pertinent History Female Reproductive Disorders: No Pertinent History Other Medical History: PT. IS A SMOKER NAD HAS HX CHRONIC HIP PN. PSH: APPENDECTOMY, TUBAL LIGATION, AND ORAL SURGERY; HX MARIJUANA USE - Past Surgical History Past Surgical History: Yes Neuro Surgical History: No Pertinent History Cardiac: No Pertinent History Respiratory: No Pertinent History Gastrointestinal: Appendectomy Genitourinary: No Pertinent History Musculoskeletal: No Pertinent History Female Surgical History: Tubal Ligation Other Surgical History: oral surgery, ear drum cauterization, - Social History Smoking Status: Current every day smoker How long have you smoked: 23 years Exposure to second hand smoke: Yes Drug Use: marijuana Patient Lives Alone: No Significant Family History: hypertension (mother) - Female History Hx Last Menstrual Period: february Hx Now: No - Nursing Vital Signs Nursing Vital Signs: Initial Vital Signs Temperature 97.2 F 03/18/18 11:09 Pulse Rate 116 H 03/18/18 11:09 Respiratory Rate 18 03/18/18 11:09 Blood Pressure 142/94 03/18/18 11:09 O2 Sat by Pulse Oximetry 97 03/18/18 11:09 Pain Scale Pain Intensity 2 - Physical Exam General Appearance: no apparent distress Eye Exam: eyes nml inspection Ears, Nose, Throat Exam: moist mucous membranes Neck Exam: normal inspection Respiratory Exam: normal breath sounds Cardiovascular Exam: regular rate/rhythm, normal heart sounds Gastrointestinal/Abdomen Exam: soft, tenderness, No rebound Back Exam: normal inspection Extremity Exam: normal inspection Neurologic Exam: alert, oriented x 3, cooperative Skin Exam: normal color, warm, dry SpO2 Interpretation: normal SpO2: 97 Oxygen Delivery: Room Air - Course Nursing assessment & vital signs reviewed: Yes - CT Exams Abdomen/Pelvis CT Interpretation: Discussed w/radiologist, Other (no obstruction or appendicitis) Ordered Tests: Active Orders 24 hr Category Date Time Status IV Insertion STAT Care 03/18/18 11:13 Active ABDOMEN AND PELVIS W/0 CONTRAS [CT] Stat Exams 03/18/18 13:05 Completed CBC W DIFF Stat Lab 03/18/18 11:40 Received CMP Stat Lab 03/18/18 11:40 Completed CULTURE,URINE Stat Lab 03/18/18 11:40 Received D-DIMER QUANTITATION Stat Lab 03/18/18 11:40 Completed HCG QUALITATIVE,SERUM Stat Lab 03/18/18 11:40 Completed LIPASE Stat Lab 03/18/18 11:40 Completed UA W/ MICROSCOPIC Stat Lab 03/18/18 11:40 Completed Urine Triage Profile Stat Lab 03/18/18 11:40 Completed Medication Summary Discontinued Medications Generic Name Dose Route Start Last Admin Trade Name Alexandreq PRN Reason Stop Dose Admin Sodium Chloride 1,000 mls @ 999 mls/hr 03/18/18 11:13 03/18/18 11:29 Sodium Chloride 0.9% 1000 Ml IV 03/18/18 12:13 999 mls/hr .Q1H1M STA Administration Sodium Chloride Confirm 03/18/18 11:24 Sodium Chloride 0.9% 1000 Ml Administered 03/18/18 11:25 Dose 1,000 mls @ ud .ROUTE .STK-MED ONE Ketorolac Tromethamine 30 mg 03/18/18 11:13 03/18/18 11:29 Toradol 30 Mg Injection IV 03/18/18 11:14 30 mg STAT ONE Administration Ketorolac Tromethamine Confirm 03/18/18 11:24 Toradol 30 Mg Injection Administered 03/18/18 11:25 Dose 30 mg .ROUTE .STK-MED ONE Ondansetron HCl 4 mg 03/18/18 11:13 03/18/18 11:30 Zofran 4 Mg/2 Ml Vial IV 03/18/18 11:14 4 mg STAT ONE Administration Ondansetron HCl Confirm 03/18/18 11:24 Zofran 4 Mg/2 Ml Vial Administered 03/18/18 11:25 Dose 4 mg .ROUTE .STK-MED ONE Pantoprazole Sodium 40 mg 03/18/18 11:13 03/18/18 11:29 Protonix 40 Mg Iv IV 03/18/18 11:14 40 mg STAT ONE Administration Pantoprazole Sodium Confirm 03/18/18 11:24 Protonix 40 Mg Iv Administered 03/18/18 11:25 Dose 40 mg IV .STK-[facility] ONE Lab/Rad Data: Laboratory Result Diagrams 03/18/18 11:40 Laboratory Results 03/18/18 03/18/18 03/18/18 Range/Units 11:40 11:40 11:40 D-Dimer 339.41 (215-500) ng/mL Sodium (137-145) mmol/L Potassium (3.5-5.1) mmol/L Chloride (98-107) mmol/L Carbon Dioxide (22-30) mmol/L Anion Gap (5-15) MEQ/L BUN (7-17) mg/dL Creatinine (0.52-1.04) mg/dL Estimated GFR ML/MIN Glucose (74-106) mg/dL Calcium (8.4-10.2) mg/dL Total Bilirubin (0.2-1.3) mg/dL AST (14-36) U/L ALT (0-35) U/L Alkaline Phosphatase (38-126) U/L Serum Total Protein (6.3-8.2) g/dL Albumin (3.5-5.0) g/dL Lipase (23-300) U/L Serum , Qual NEGATIVE (Negative) Ur Collection Type Urine Color (YELLOW) Urine Appearance (CLEAR) Urine pH (5-6) Ur Specific [place] (1.005-1.025) Urine Protein (Negative) Urine Ketones (NEGATIVE) Urine Blood (0-5) Ruiz/ul Urine Nitrite (NEGATIVE) Urine Bilirubin (NEGATIVE) Urine Urobilinogen (0-1) mg/dL Ur Leukocyte Esterase (NEGATIVE) Urine Microscopic WBC (0-5) /HPF Ur Epithelial Cells (FEW) /HPF Urine Bacteria (NEGATIVE) /HPF Urine Culture Reflexed (NO) Urine Glucose (NEGATIVE) mg/dL Urine Opiates Level NEGATIVE (NEGATIVE) Ur Methadone NEGATIVE (NEGATIVE) Urine Barbiturates NEGATIVE (NEGATIVE) Ur Phencyclidine (PCP) NEGATIVE (NEGATIVE) Urine Amphetamine NEGATIVE (NEGATIVE) U Benzodiazepine Level NEGATIVE (NEGATIVE) Urine Cocaine NEGATIVE (NEGATIVE) Urine Marijuana (THC) POSITIVE (NEGATIVE) Specimen Received 03/18/18 03/18/18 Range/Units 11:40 11:40 D-Dimer (215-500) ng/mL Sodium 135 L (137-145) mmol/L Potassium 4.8 (3.5-5.1) mmol/L Chloride 100 (98-107) mmol/L Carbon Dioxide 20 L (22-30) mmol/L Anion Gap 19.7 H (5-15) MEQ/L BUN 8 (7-17) mg/dL Creatinine 0.46 L (0.52-1.04) mg/dL Estimated GFR > 60.0 ML/MIN Glucose 287 H (74-106) mg/dL Calcium 9.7 (8.4-10.2) mg/dL Total Bilirubin 0.90 (0.2-1.3) mg/dL AST 24 (14-36) U/L ALT 22 (0-35) U/L Alkaline Phosphatase 97 (38-126) U/L Serum Total Protein 7.4 (6.3-8.2) g/dL Albumin 4.4 (3.5-5.0) g/dL Lipase 145 (23-300) U/L Serum , Qual (Negative) Ur Collection Type CLEAN CATCH Urine Color DYLAN (YELLOW) Urine Appearance CLOUDY (CLEAR) Urine pH 5.0 (5-6) Ur Specific [place] 1.020 (1.005-1.025) Urine Protein 300 (Negative) Urine Ketones SMALL (NEGATIVE) Urine Blood 250 (0-5) Ruiz/ul Urine Nitrite POSITIVE (NEGATIVE) Urine Bilirubin NEGATIVE (NEGATIVE) Urine Urobilinogen NORMAL (0-1) mg/dL Ur Leukocyte Esterase 2+ (NEGATIVE) Urine Microscopic WBC >100 (0-5) /HPF Ur Epithelial Cells FEW (FEW) /HPF Urine Bacteria MODERATE (NEGATIVE) /HPF Urine Culture Reflexed YES (NO) Urine Glucose 1000 (NEGATIVE) mg/dL Urine Opiates Level (NEGATIVE) Ur Methadone (NEGATIVE) Urine Barbiturates (NEGATIVE) Ur Phencyclidine (PCP) (NEGATIVE) Urine Amphetamine (NEGATIVE) U Benzodiazepine Level (NEGATIVE) Urine Cocaine (NEGATIVE) Urine Marijuana (THC) (NEGATIVE) Specimen Received 03/18/18 1200 - Progress Progress: improved Counseled pt/family regarding: lab results, diagnosis, need for follow-up, rad results - Departure Time of Disposition: 14:54 Departure Disposition: Home Clinical Impression: UTI (urinary tract infection) Qualifiers: Urinary tract infection type: acute cystitis Hematuria presence: with hematuria Qualified Code(s): N30.01 - Acute cystitis with hematuria Condition: Stable Critical Care Time: No Instructions: Acute Abdomen (Belly Pain), Adult (DC) Additional Instructions: keflex, motrin, oral fluids, see your doctor, return if worse, differential d/w pt as early diverticulitis, occult renal stone, early pyelonephritis
[2018-03-18] MEDS ORDERED: Sodium Chloride 0.9% 1000 ML 1,000 ML ONE (11:24)
[2018-03-18] MEDS ORDERED: TORAdol 30 mg Injection ONE (11:24)
[2018-03-18] MEDS ORDERED: Zofran 4 MG/2 ML VIAL ONE (11:24)
[2018-03-18 12:10] LABS: Amphetamine,Urine NEGATIVE (NEGATIVE); Benzodiazepine,Urine NEGATIVE (NEGATIVE); Cocaine,Urine NEGATIVE (NEGATIVE); Methadone,Urine NEGATIVE (NEGATIVE); Opiate,Urine NEGATIVE (NEGATIVE); PCP,Urine NEGATIVE (NEGATIVE); THC,Urine POSITIVE (NEGATIVE)
[2018-03-18 12:14] LABS: Appearance CLOUDY (CLEAR); Bacteria MODERATE /HPF (NEGATIVE); Bilirubin NEGATIVE (NEGATIVE); Blood 250 Ery/ul (0-5); Epithelial Cells FEW /HPF (FEW); Glucose 1000 mg/dL (NEGATIVE); Ketones SMALL (NEGATIVE); Leukocyte Esterase 2+ (NEGATIVE); Nitrite POSITIVE (NEGATIVE); Protein,Urine Dip 300 (Negative); Urobilinogen NORMAL mg/dL (0-1); WBC >100 /HPF (0-5)
[2018-03-18 12:33] LABS: ALBUMIN 4.4 g/dL (3.5-5.0); ALKALINE PHOSPHATASE 97 U/L (38-126); ANION GAP 19.7 MEQ/L (5-15); BLOOD UREA NITROGEN 8 mg/dL (7-17); CHLORIDE 100 mmol/L (98-107); Calcium 9.7 mg/dL (8.4-10.2); Carbon Dioxide 20 mmol/L (22-30); Creatinine 1 0.46 mg/dL (0.52-1.04); Glucose 287 mg/dL (74-106); LIPASE 145 U/L (23-300); Potassium 4.8 mmol/L (3.5-5.1); SGOT/AST 24 U/L (14-36); SODIUM 135 mmol/L (137-145); Total Protein 7.4 g/dL (6.3-8.2)
[2018-03-18 12:40] LABS: SGPT/ALT 22 U/L (0-35)
[2018-03-18 13:00] LABS: Barbiturate,Urine NEGATIVE (NEGATIVE)
--- NOTE | 2018-03-18 13:59 | XRAY ---
Indication: Lower abdominal pain. Multiple contiguous axial images obtained through the abdomen and pelvis without contrast as ordered. Comparison: None Lung bases demonstrates minimal bibasilar dependent atelectasis. No infiltrate or effusion. Heart is not enlarged. Noncontrasted stomach and bowel loops appear nonobstructed. Normal appendix. Nonobstructing punctate right renal and faint left renal calculus. Remaining liver, gallbladder, pancreas, spleen, adrenal glands, kidneys, ureters, bladder, uterus, and aorta appear unremarkable for noncontrast exam. Osseous structures intact with mild degenerative changes throughout the spine, greatest at the lumbosacral junction. Impression: 1. Nonobstructing bilateral renal micro-calculi. 2. Remaining CT abdomen/pelvis without contrast exam negative. CT DI 34.96
[2018-03-18 14:37] VITALS: BP 105/75; PULSE 92
[2018-03-18 14:57] VITALS: O2SAT 97
== END 2018-03-18 15:20 | disposition home or self-care (01) ==
LOC: ED 10:57
DX: N30.01 Acute cystitis with hematuria (principal); R10.9 Unspecified abdominal pain; R11.0 Nausea; E11.9 Type 2 diabetes mellitus without complications; Z79.84 Long term (current) use of oral hypoglycemic drugs
CPT/HCPCS: 36000; 36415; 74176; 80053; 80307; 81000; 83690; 84703; 85025; 85379; 87077; 87086; 87186; 96360; 96374; 96375; 99284; J1885; J2405

== ENCOUNTER 2018-09-02 10:53 | Emergency (ER) | payer OTHER ==
[2018-09-02 11:02] VITALS: BP 164/115; PULSE 86; O2SAT 98
[2018-09-02] MEDS ORDERED: XYLOCAINE HCl Viscous ONE (11:19)
[2018-09-02] MEDS ORDERED: CLEOCIN 150 MG CAPSULE ONE (11:19)
[2018-09-02] MEDS: XYLOCAINE VISCOUS 2% 20 ML CUP PO ONE (11:22)
[2018-09-02] MEDS: CLEOCIN 150 MG CAPSULE PO ONE (11:22)
--- NOTE | 2018-09-02 11:22 | ERPHSYRPT ---
- History of Present Illness Time Seen by Provider: 09/02/18 11:16 Source: patient Patient Subjective Stated Complaint: patient comes in with an abscess tooth, states she has had them before and the pain started yesterday. Triage Nursing Assessment: Patient is alert and oriented female with history of diabetes, high cholesterol and previous abscess requiring airlifting for treatment due to throat swelling. pain is rated at a 3-8 depending on how she moves. Physician History: mild to mod ache lower left tooth for 2 days, no injury, no fever, speech fluent Allergies/Adverse Reactions: tomato Allergy (Verified 03/18/18 11:13) Home Medications: Metformin HCl [Metformin HCl ER] 500 mg PO BID 11/01/16 [History] Hx Tetanus, Diphtheria Vaccination/Date Given: No Hx Influenza Vaccination/Date Given: No Hx Pneumococcal Vaccination/Date Given: No Immunizations Up to Date: Yes - Review of Systems Constitutional: No Fever Eyes: No Tearing Ears, Nose, & Throat: No Painful Swallowing Respiratory: No Dyspnea Neurological: No Dizziness - Past Medical History Pertinent Past Medical History: Yes Neurological History: No Pertinent History ENT History: No Pertinent History Cardiac History: High Cholesterol Respiratory History: No Pertinent History Endocrine Medical History: Diabetes Type II Musculoskeletal History: Other GI Medical History: No Pertinent History History: No Pertinent History Psycho-Social History: No Pertinent History Female Reproductive Disorders: No Pertinent History Other Medical History: PT. IS A SMOKER NAD HAS HX CHRONIC HIP PN. TUBAL LIGATION , AND ORAL SURGERY; HX MARIJUANA USE - Past Surgical History Past Surgical History: Yes Neuro Surgical History: No Pertinent History Cardiac: No Pertinent History Respiratory: No Pertinent History Gastrointestinal: No Pertinent History Genitourinary: No Pertinent History Musculoskeletal: No Pertinent History Female Surgical History: Tubal Ligation Other Surgical History: oral surgery, ear drum cauterization, - Social History Smoking Status: Current every day smoker How long have you smoked: 22 yrs Exposure to second hand smoke: Yes Drug Use: marijuana Patient Lives Alone: No Significant Family History: hypertension (mother) - Female History Hx Now: No - Nursing Vital Signs Nursing Vital Signs: Initial Vital Signs Temperature 98.6 F 09/02/18 10:54 Pulse Rate 86 09/02/18 10:54 Respiratory Rate 20 09/02/18 10:54 Blood Pressure 164/115 09/02/18 10:54 O2 Sat by Pulse Oximetry 98 09/02/18 10:54 Pain Scale Pain Intensity 8 - Physical Exam General Appearance: no apparent distress Ears, Nose, Throat Exam: other (tender lower left molar, +erythema, no fluc mass , no trismus) Respiratory Exam: No respiratory distress SpO2: 98 Oxygen Delivery: Room Air - Course Nursing assessment & vital signs reviewed: Yes - Progress Progress: improved Counseled pt/family regarding: diagnosis, need for follow-up - Departure Time of Disposition: 11:18 Departure Disposition: Home Clinical Impression: Dental infection Condition: Stable Critical Care Time: No Referrals: DOCTOR,NO FAMILY [Primary Care Provider] - Instructions: Tooth Decay, Adult (DC) Additional Instructions: viscus lidocaine, cleocin, see a dentist, return if worse Prescriptions: Clindamycin HCl 150 mg PO TID 10 Days #30 capsule
== END 2018-09-02 11:49 | disposition home or self-care (01) ==
LOC: ED 10:53
DX: K04.7 Periapical abscess without sinus (principal); K08.89 Other specified disorders of teeth and supporting structures; E11.9 Type 2 diabetes mellitus without complications; E78.00 Pure hypercholesterolemia, unspecified; F12.90 Cannabis use, unspecified, uncomplicated; Z72.0 Tobacco use; Z79.4 Long term (current) use of insulin
CPT/HCPCS: 99283; A9270-GY

== ENCOUNTER 2018-09-29 11:53 | Emergency (ER) | payer OTHER ==
[2018-09-29 12:06] VITALS: BP 140/90; PULSE 86; O2SAT 98
--- NOTE | 2018-09-29 12:16 | ERPHSYRPT ---
- History of Present Illness Time Seen by Provider: 09/29/18 12:10 Source: patient Exam Limitations: clinical condition Patient Subjective Stated Complaint: pt here for a toothache for over a month, and cant get into dentist, co pain and swelling to botttom left jaw Triage Nursing Assessment: pt alert, walked in, resp easy, skin w/d/p. has multi dental caries and has slight swelling to left jaw Physician History: PATIENT WITH A HISTORY OF TYPE 2 DIABETES COMPLAINS OF LEFT LOWER TOOTHACHE FOR 2 MONTHS, EVALUATED IN EMERGENCY 1 MONTH AGO, HAS NO PRIMARY CARE PROVIDER, UNABLE TO FOLLOWUP WITH A DENTIST. DENIES FEVER, DIFFICULTY BREATHING OR SWALLOWING. Timing/Duration: gradual onset Severity: moderate ENT Location: dental Prearrival Treatment: no prearrival treatment Modifying Factors: Improves With: nothing Associated Symptoms: facial pain/swelling Allergies/Adverse Reactions: tomato Allergy (Verified 03/18/18 11:13) Home Medications: Metformin HCl [Metformin HCl ER] 500 mg PO BID 11/01/16 [History] Fenofibrate Nanocrystallized [Fenofibrate] 48 mg DAILY 09/29/18 [History] Hx Tetanus, Diphtheria Vaccination/Date Given: Yes Hx Influenza Vaccination/Date Given: No Hx Pneumococcal Vaccination/Date Given: No Immunizations Up to Date: Yes - Review of Systems Constitutional: No Fever, No Chills Eyes: No Symptoms Ears, Nose, & Throat: Loose Teeth Respiratory: No Symptoms, No Cough, No Dyspnea Cardiac: No Symptoms, No Chest Pain, No Edema, No Syncope Abdominal/Gastrointestinal: No Abdominal Pain, No Nausea, No Vomiting, No Diarrhea Genitourinary Symptoms: No Dysuria Musculoskeletal: No Back Pain, No Neck Pain Skin: No Rash Neurological: No Dizziness, No Focal Weakness, No Sensory Changes Psychological: No Symptoms Endocrine: No Symptoms All Other Systems: Reviewed and Negative - Past Medical History Pertinent Past Medical History: Yes Neurological History: No Pertinent History ENT History: No Pertinent History Cardiac History: High Cholesterol Respiratory History: No Pertinent History Endocrine Medical History: Diabetes Type II Musculoskeletal History: Other GI Medical History: No Pertinent History History: No Pertinent History Psycho-Social History: No Pertinent History Female Reproductive Disorders: No Pertinent History Other Medical History: PT. IS A SMOKER NAD HAS HX CHRONIC HIP PN. TUBAL LIGATION , AND ORAL SURGERY; HX MARIJUANA USE - Past Surgical History Past Surgical History: Yes Neuro Surgical History: No Pertinent History Cardiac: No Pertinent History Respiratory: No Pertinent History Gastrointestinal: No Pertinent History Genitourinary: No Pertinent History Musculoskeletal: No Pertinent History Female Surgical History: Tubal Ligation Other Surgical History: oral surgery, ear drum cauterization, - Social History Smoking Status: Current every day smoker How long have you smoked: 22 yrs Exposure to second hand smoke: Yes Drug Use: marijuana Patient Lives Alone: No Significant Family History: hypertension (mother) - Female History Hx Last Menstrual Period: now Hx Now: No - Nursing Vital Signs Nursing Vital Signs: Initial Vital Signs Temperature 98.5 F 09/29/18 12:02 Pulse Rate 86 09/29/18 12:02 Respiratory Rate 16 09/29/18 12:02 Blood Pressure 140/90 09/29/18 12:02 O2 Sat by Pulse Oximetry 98 09/29/18 12:02 Pain Scale Pain Intensity 2 - Physical Exam General Appearance: no apparent distress, alert Eye Exam: bilateral eye: normal inspection, PERRL Ear Exam: bilateral ear: auricle normal, canal normal Nasal Exam: foreign body Throat Exam: pharynx normal, dental tenderness (WIDESPREAD DENTAL CARIES WITH EROSIONS INTO GINGIVA) Cardiovascular/Respiratory Exam: chest non-tender, normal breath sounds, regular rate/rhythm SpO2: 98 Oxygen Delivery: Room Air - Departure Time of Disposition: 12:30 Departure Disposition: Home Clinical Impression: WIDESPREAD DENTAL CARIES Condition: Stable Critical Care Time: No Referrals: DOCTOR,NO FAMILY [Primary Care Provider] - Additional Instructions: TYLENOL OR MOTRIN NEEDED FOR PAIN OR FEVER. CONSULT A DENTIST OR FOLLOWUP AT [facility] FOR TREATMENT. ANTIBIOTIC AMOXICILLIN 500MG EVERY 8 HOURS FOR 10 DAYS. Prescriptions: Amoxicillin 500 mg PO TID #30 capsule
== END 2018-09-29 12:54 | disposition home or self-care (01) ==
LOC: ED 11:53
DX: K02.9 Dental caries, unspecified (principal)
CPT/HCPCS: 99283

== ENCOUNTER 2019-05-14 15:04 | Emergency (ER) | payer OTHER ==
[2019-05-14] MEDS ORDERED: PERCOCET TABLET 5/325MG PO STA (15:23)
[2019-05-14 15:24] VITALS: BP 161/106; PULSE 89; O2SAT 98
[2019-05-14] MEDS ORDERED: AMOXIL 500 MG PO ONE (15:24)
[2019-05-14] MEDS ORDERED: AMOXIL 500 MG ONE (15:30)
[2019-05-14] MEDS ORDERED: PERCOCET TABLET 5/325MG ONE (15:30)
--- NOTE | 2019-05-14 15:36 | ERPHSYRPT ---
- History of Present Illness Time Seen by Provider: 05/14/19 15:20 Source: patient Exam Limitations: no limitations Patient Subjective Stated Complaint: states has had mouth/tooth pain left upper. since this am. hx of dental caries and abscesses. denies fever. Triage Nursing Assessment: ambulated to room per self. skin w/d, color normal, resp nonlabored. no swelling to face noted at this time. Physician History: 43 y/o white female presents with chronic recurrent left upper molar dental pain. she has had several visits for same issue. pt took last tramadol today. Timing/Duration: intermittent (chronic) Severity: moderate ENT Location: dental Prearrival Treatment: no prearrival treatment Modifying Factors: Improves With: nothing Associated Symptoms: tooth pain Allergies/Adverse Reactions: tomato Allergy (Verified 05/14/19 15:15) Home Medications: Celecoxib [Celebrex] 100 mg PO DAILY 05/14/19 [History] Gabapentin 600 mg PO DAILY 05/14/19 [History] Tramadol HCl 50 mg [Ultram 50 mg] 50 mg PO DAILY 05/14/19 [History] Hx Tetanus, Diphtheria Vaccination/Date Given: Yes Hx Influenza Vaccination/Date Given: No Hx Pneumococcal Vaccination/Date Given: No - Review of Systems Constitutional: No Symptoms Eyes: No Symptoms Ears, Nose, & Throat: Other (dental pain) Respiratory: No Symptoms Cardiac: No Symptoms Abdominal/Gastrointestinal: No Symptoms Genitourinary Symptoms: No Symptoms Musculoskeletal: No Symptoms Skin: No Symptoms Neurological: No Symptoms Psychological: No Symptoms Endocrine: No Symptoms Hematologic/Lymphatic: No Symptoms Immunological/Allergic: No Symptoms All Other Systems: Reviewed and Negative - Past Medical History Pertinent Past Medical History: Yes Neurological History: No Pertinent History ENT History: No Pertinent History Cardiac History: High Cholesterol Respiratory History: No Pertinent History Endocrine Medical History: Diabetes Type II Musculoskeletal History: Other GI Medical History: No Pertinent History History: No Pertinent History Psycho-Social History: No Pertinent History Female Reproductive Disorders: No Pertinent History Other Medical History: PT. IS A SMOKER NAD HAS HX CHRONIC HIP PN. TUBAL LIGATION , AND ORAL SURGERY; HX MARIJUANA USE - Past Surgical History Past Surgical History: Yes Neuro Surgical History: No Pertinent History Cardiac: No Pertinent History Respiratory: No Pertinent History Gastrointestinal: No Pertinent History Genitourinary: No Pertinent History Musculoskeletal: No Pertinent History Female Surgical History: Tubal Ligation Other Surgical History: oral surgery, ear drum cauterization, - Social History Smoking Status: Current every day smoker How long have you smoked: 22 yrs Exposure to second hand smoke: Yes Drug Use: none Patient Lives Alone: No Significant Family History: hypertension (mother) - Female History Hx Last Menstrual Period: four days ago Hx Now: No - Nursing Vital Signs Nursing Vital Signs: Initial Vital Signs Temperature 98.4 F 05/14/19 15:10 Pulse Rate 89 05/14/19 15:10 Respiratory Rate 16 05/14/19 15:10 Blood Pressure 161/106 05/14/19 15:10 O2 Sat by Pulse Oximetry 98 05/14/19 15:10 Pain Scale Pain Intensity 8 - Physical Exam General Appearance: no apparent distress, alert, anxiety Eye Exam: bilateral eye: normal inspection, PERRL, EOMI Nasal Exam: normal inspection Throat Exam: dental tenderness Neck Exam: normal inspection, non-tender, supple, full range of motion, trachea midline Cardiovascular/Respiratory Exam: chest non-tender, normal breath sounds, regular rate/rhythm Abdominal Exam: non-tender Neurologic Exam: alert, oriented x 3, cooperative, clothing man II-XII nml as tested Skin Exam: normal color, warm, dry SpO2 Interpretation: normal SpO2: 98 O2 Delivery: Room Air - Course Nursing assessment & vital signs reviewed: Yes Ordered Tests: Medication Summary Discontinued Medications Generic Name Dose Route Start Last Admin Trade Name Freq PRN Reason Stop Dose Admin Amoxicillin 500 mg 05/14/19 15:24 Amoxil 500 Mg PO 05/14/19 15:25 STAT ONE Oxycodone/Acetaminophen 1 tab 05/14/19 15:23 Percocet Tablet 5/325mg PO 05/14/19 15:24 STAT STA - Progress Progress: unchanged Counseled pt/family regarding: diagnosis, need for follow-up - Departure Departure Disposition: Home Clinical Impression: Chronic dental infection Condition: Stable Critical Care Time: No Referrals: DOCTOR,NO FAMILY [Primary Care Provider] - Additional Instructions: follow up with dentist for definitive care. Forms: Work/School Release Form Prescriptions: Amoxicillin 500 mg Cap [Amoxil 500 mg] 500 mg PO TID #30 capsule Tramadol HCl 50 mg [Ultram 50 mg] 50 mg PO TID PRN #15 tablet PRN Reason: Moderate Pain
== END 2019-05-14 15:46 | disposition home or self-care (01) ==
LOC: ED 15:04
DX: B99.9 Unspecified infectious disease (principal); K13.79 Other lesions of oral mucosa
CPT/HCPCS: 99283; A9270-GY

== ENCOUNTER 2020-04-03 15:18 | Emergency (ER) | payer SELFPAY ==
[2020-04-03 15:29] VITALS: PULSE 101; O2SAT 98
--- NOTE | 2020-04-03 15:38 | ERPHSYRPT ---
- History of Present Illness Time Seen by Provider: 04/03/20 15:33 Source: patient Exam Limitations: no limitations Patient Subjective Stated Complaint: Earache to right ear Triage Nursing Assessment: Patient ambulated back to ED and transferred self to bed. Patient A+O X3. Patient's skin pink, warm and dry. Patient complains of earache to right ear that started yesterday. Patient states pain is constant aching and sharp pain 10/10. Patient complains of occasional dizziness because of her earache. Physician History: Hx of recurrent Otitis externa. this episode started yesterday. severe pain R side of face. Timing/Duration: abrupt onset Severity: severe ENT Location: ear (R) Prearrival Treatment: no prearrival treatment Modifying Factors: Improves With: nothing Associated Symptoms: ear pain (R), dizziness, facial pain/swelling Allergies/Adverse Reactions: tomato Allergy (Verified 04/03/20 15:22) Hx Tetanus, Diphtheria Vaccination/Date Given: Yes Hx Influenza Vaccination/Date Given: No Hx Pneumococcal Vaccination/Date Given: No Immunizations Up to Date: Yes Travel Risk - International Travel Have you traveled outside of the country in past 3 weeks: No Have you or anyone close to you been diagnosed with or: No Do your reside in a community with a known COVID-19 case?: Yes If Yes where:: [facility] - Coronavirus Screening Has patient experienced Coronavirus symptoms: No - Review of Systems Constitutional: No Fever, No Chills Eyes: No Symptoms Ears, Nose, & Throat: Ear Pain Respiratory: No Cough, No Dyspnea Cardiac: No Chest Pain, No Edema, No Syncope Abdominal/Gastrointestinal: No Abdominal Pain, No Nausea, No Vomiting, No Diarrhea Genitourinary Symptoms: No Dysuria Musculoskeletal: No Back Pain, No Neck Pain Skin: No Rash Neurological: No Dizziness, No Focal Weakness, No Sensory Changes Psychological: No Symptoms Endocrine: No Symptoms All Other Systems: Reviewed and Negative - Past Medical History Pertinent Past Medical History: Yes Neurological History: No Pertinent History ENT History: No Pertinent History Cardiac History: High Cholesterol Respiratory History: No Pertinent History Endocrine Medical History: Diabetes Type II Musculoskeletal History: Other GI Medical History: No Pertinent History History: No Pertinent History Psycho-Social History: No Pertinent History Female Reproductive Disorders: No Pertinent History Other Medical History: PT. IS A SMOKER NAD HAS HX CHRONIC HIP PN. TUBAL LIGATION , AND ORAL SURGERY; HX MARIJUANA USE - Past Surgical History Past Surgical History: Yes Neuro Surgical History: No Pertinent History Cardiac: No Pertinent History Respiratory: No Pertinent History Gastrointestinal: No Pertinent History Genitourinary: No Pertinent History Musculoskeletal: No Pertinent History Female Surgical History: Tubal Ligation Other Surgical History: oral surgery, ear drum cauterization, - Social History Smoking Status: Current every day smoker How long have you smoked: 22 yrs Exposure to second hand smoke: Yes Drug Use: none Patient Lives Alone: No Significant Family History: hypertension (mother) - Female History Hx Last Menstrual Period: 1 month ago Hx Now: No - Nursing Vital Signs Nursing Vital Signs: Initial Vital Signs Temperature 98.0 F 04/03/20 15:23 Pulse Rate 101 H 04/03/20 15:23 Respiratory Rate 18 04/03/20 15:23 O2 Sat by Pulse Oximetry 98 04/03/20 15:23 Pain Scale Pain Intensity 10 - Physical Exam General Appearance: no apparent distress, alert Eye Exam: bilateral eye: PERRL, EOMI Ear Exam: right ear: swelling, tenderness, other (canal edematous, tragal tenderness) Nasal Exam: normal inspection Throat Exam: pharynx normal, moist mucus membranes, No tonsillar exudate Neck Exam: supple Cardiovascular/Respiratory Exam: normal breath sounds, regular rate/rhythm Abdominal Exam: non-tender, soft Neurologic Exam: alert, oriented x 3, sensation nml, No motor deficits Skin Exam: normal color, warm, dry SpO2: 98 - Course Nursing assessment & vital signs reviewed: Yes - Progress Progress: unchanged - Departure Departure Disposition: Home Clinical Impression: Otitis externa Condition: Stable Critical Care Time: No Referrals: HAMILTON EDWARDS DO [Primary Care Provider] - Instructions: Ear Infections (Otitis Media) in Children (DC) Forms: Work/School Release Form Prescriptions: Hydrocodone/APAP 5-325 Tab^^^ [[place] 5-325 Tablet^^^] 1 tab PO Q6HPRN PRN #10 tablet MDD 6 PRN Reason: Pain Amoxicillin 500 mg PO TID 10 Days #30 tablet Neomy Sulf/Polymyx B Sulf/Hc [Cortisporin Ear Suspension] 10 ml OT TID 10 Days # 1 drops.susp
[2020-04-03 15:44] VITALS: BP 143/90
== END 2020-04-03 15:47 | disposition home or self-care (01) ==
LOC: ED 15:18
DX: H60.91 Unspecified otitis externa, right ear (principal); E78.00 Pure hypercholesterolemia, unspecified; E11.9 Type 2 diabetes mellitus without complications
CPT/HCPCS: 99283

== ENCOUNTER 2020-09-04 21:17 | Observation (INO) | payer MEDICAID ==
[2020-09-04] MEDS ORDERED: Zosyn 3.375 GM Vial 3.375 GM in Sodium Chloride 100ML MINI-BAG PLUS 100 ML IV ONE (21:46)
[2020-09-04] MEDS ORDERED: VANCOMYCIN 2 GRAM/400 ML BAG 2 GM/400 ML PIGGYBACK IV ONE ×2 (21:47→22:20)
[2020-09-04] MEDS ORDERED: MORPHINE SULFATE 4 MG INJ IV ONE (21:48)
[2020-09-04] MEDS ORDERED: Zofran 4 MG/2 ML VIAL IV ONE (21:48)
[2020-09-04] MEDS ORDERED: MORPHINE SULFATE 4 MG INJ ONE (22:19)
[2020-09-04] MEDS ORDERED: Zofran 4 MG/2 ML VIAL ONE (22:19)
[2020-09-04] MEDS ORDERED: Zosyn 3.375 GM Vial IV ONE (22:20)
[2020-09-04] MEDS ORDERED: Sodium Chloride 100ML MINI-BAG PLUS 100 ML IV ONE (22:20)
[2020-09-04 22:42] LABS: BASOPHIL % 0.4 % (0.0-0.4); Basophil (Absolute #) 0.04 (0-0.4); Eosinophil % 1.3 % (0.00-5.0); Eosinophil (Absolute #) 0.15 (0-0.5); Hemoglobin 13.5 gm/dl (12.0-16.0); Lymphocyte (Absolute #) 2.55 (1.0-4.6); Lymphocytes % 22.7 % (24.0-44.0); Mean Cell Volume 88.1 fl (78-100); Mean Corpuscular Hemoglobin 28.3 pg (26-32); Mean Corpuscular Hgb Concent. 32.1 g/dl (32-36); Mean Platelet Volume 9.8 fl (7.5-11.0); Monocyte (Absolute #) 0.81 (0.0-1.3); Monocytes % 7.2 % (0.0-12.0); Neutrophil % 68.4 % (36.0-66.0); Platelet Count 239 K/mm3 (150-450); Red Blood Count 4.77 M/mm3 (4.1-5.4); Red Cell Distribution Width 13.5 % (11.5-14.0); White Blood Count 11.3 K/mm3 (4.0-10.5)
[2020-09-04 22:49] LABS: ALBUMIN 4.2 g/dL (3.5-5.0); ALKALINE PHOSPHATASE 85 U/L (38-126); ANION GAP 10.5 MEQ/L (5-15); BLOOD UREA NITROGEN 3 mg/dL (7-17); CHLORIDE 102 mmol/L (98-107); Calcium 9.3 mg/dL (8.4-10.2); Carbon Dioxide 26 mmol/L (22-30); Creatinine 1 0.44 mg/dL (0.52-1.04); EST GLOMERULAR FILTRATION RATE > 60.0 ML/MIN; Glucose 301 mg/dL (74-106); SGOT/AST 20 U/L (14-36); SGPT/ALT 16 U/L (0-35); SODIUM 135 mmol/L (137-145); Total Protein 7.5 g/dL (6.3-8.2)
[2020-09-04] MEDS ORDERED: HOLD METFORMIN PRODUCTS FOR 48 HOURS MC SCH (23:00)
--- NOTE | 2020-09-04 23:29 | ERPHSYRPT ---
- History of Present Illness Time Seen by Provider: 09/04/20 21:29 Source: patient Exam Limitations: no limitations Patient Subjective Stated Complaint: pt states "I have a bite on vagina" Triage Nursing Assessment: pt ambulated into the er; pt is axo x4; c/o abscess to freedom area; states 6/10 pain to freedom area; area is red, warm and hard to the t ouch; minimal drainage present; hypertensive; tachycardic Physician History: 44 years old morbidly obese female with a history of diabetes mellitus presented in the ER with pubic swelling which she noticed 2 days ago and is gradually worsening. Patient report initially it was a pea size currently involves the whole left half of pubic area associated with moderate intensity sharp throbbing pain which gets worse with movement and palpation and better with taking over-th e-counter pain medication. She denies associated fever or chills. She tried to squeeze it with minimal discharge earlier. Denies any difficulty urination or abdominal/pelvic pain. Denies history of MRSA. Blood sugar is fairly controlled per patient. Timing/Duration: day(s) (2), gradual onset, worse Severity: moderate Modifying Factors: Improves With: movement, rest, acetaminophen, ibuprofen Associated Symptoms: rash, No chills, No fever Allergies/Adverse Reactions: tomato Allergy (Verified 09/04/20 21:25) Home Medications: No Reportable Medications [No Reported Medications] 09/04/20 [History] Hx Tetanus, Diphtheria Vaccination/Date Given: Yes Hx Influenza Vaccination/Date Given: No Hx Pneumococcal Vaccination/Date Given: No Travel Risk - International Travel Have you traveled outside of the country in past 3 weeks: No - Coronavirus Screening Are you exhibiting any of the following symptoms?: No Close contact with a COVID-19 positive Pt in past 14-21 Days: No - Review of Systems Constitutional: No Symptoms Eyes: No Symptoms Ears, Nose, & Throat: No Symptoms Respiratory: No Symptoms Cardiac: No Symptoms Abdominal/Gastrointestinal: No Symptoms Genitourinary Symptoms: Other Musculoskeletal: No Symptoms Skin: Cellulitis, Induration Neurological: No Symptoms Psychological: No Symptoms Endocrine: No Symptoms Hematologic/Lymphatic: No Symptoms Immunological/Allergic: No Symptoms - Past Medical History Pertinent Past Medical History: Yes Neurological History: No Pertinent History ENT History: No Pertinent History Cardiac History: High Cholesterol Respiratory History: No Pertinent History Endocrine Medical History: Diabetes Type II Musculoskeletal History: Other GI Medical History: No Pertinent History History: No Pertinent History Psycho-Social History: No Pertinent History Female Reproductive Disorders: No Pertinent History Other Medical History: PT. IS A SMOKER NAD HAS HX CHRONIC HIP PN. TUBAL LIGATION, AND ORAL SURGERY; HX MARIJUANA USE - Past Surgical History Past Surgical History: Yes Neuro Surgical History: No Pertinent History Cardiac: No Pertinent History Respiratory: No Pertinent History Gastrointestinal: No Pertinent History Genitourinary: No Pertinent History Musculoskeletal: No Pertinent History Female Surgical History: Tubal Ligation Other Surgical History: oral surgery, ear drum cauterization, - Social History Smoking Status: Current every day smoker How long have you smoked: 22 yrs Exposure to second hand smoke: Yes Drug Use: none Patient Lives Alone: No Significant Family History: hypertension (mother) - Female History Hx Now: (unkn) - Nursing Vital Signs Nursing Vital Signs: Initial Vital Signs Temperature 98.8 F 09/04/20 21:27 Pulse Rate 111 H 09/04/20 21:27 Respiratory Rate 16 09/04/20 21:27 Blood Pressure 160/103 09/04/20 21:27 O2 Sat by Pulse Oximetry 99 09/04/20 21:27 Pain Scale Pain Intensity 1 - Physical Exam General Appearance: no apparent distress, alert Eye Exam: PERRL/EOMI Ears, Nose, Throat Exam: normal ENT inspection Neck Exam: normal inspection, supple, full range of motion Respiratory Exam: normal breath sounds, lungs clear Cardiovascular Exam: regular rate/rhythm, normal heart sounds Gastrointestinal/Abdomen Exam: soft, normal bowel sounds, No tenderness Pelvic Exam: other (Left pubic area swelling redness/induration. Warm and tender to touch. Firm in consistency. Negative fluctuation.) Back Exam: normal inspection, normal range of motion Extremity Exam: normal inspection Neurologic Exam: alert, oriented x 3, cooperative Lymphatic Exam: adenopathy, inguinal node tender (L) SpO2 Interpretation: normal SpO2: 98 O2 Delivery: Room Air - Course Nursing assessment & vital signs reviewed: Yes Ordered Tests: Active Orders 24 hr Category Date Time Status IV Insertion STAT Care 09/04/20 21:48 Active PELVIS WITH CONTRAST [CT] Stat Exams 09/04/20 21:45 Taken BLOOD CULTURE Stat Lab 09/04/20 22:50 Received CBC W DIFF Stat Lab 09/04/20 22:15 Completed CMP Stat Lab 09/04/20 22:15 Completed HCG,QUALITATIVE URINE Stat Lab 09/04/20 23:52 Ordered Lactic Acid Stat Lab 09/04/20 22:05 Completed Lactic Acid Stat Lab 09/05/20 00:16 Received Medication Summary Generic Name Dose Route Start Last Admin Trade Name Christine PRN Reason Stop Dose Admin Vancomycin HCl 2 gm in 400 mls @ 133.333 mls/hr 09/04/20 21:47 09/04/20 22:23 Vancomycin 2 Gram/400 Ml Bag IV 09/05/20 00:46 133 mls/hr STAT ONE 133 mls/hr Administration Discontinued Medications Generic Name Dose Route Start Last Admin Trade Name Christine PRN Reason Stop Dose Admin Piperacillin Sod/Tazobactam 100 mls @ 200 mls/hr 09/04/20 21:46 09/04/20 22:22 Sod 3.375 gm/ Sodium Chloride IV 09/04/20 22:15 200 mls/hr STAT ONE Administration Sodium Chloride Confirm 09/04/20 22:20 Sodium Chloride 100ml Mini-Bag Plus Administered 09/04/20 22:21 Dose 100 mls @ ud IV .STK-MED ONE Vancomycin HCl Confirm 09/04/20 22:20 Vancomycin 2 Gram/400 Ml Bag Administered 09/04/20 22:21 Dose 2 gm in 400 mls @ ud IV .STK-MED ONE Morphine Sulfate 4 mg 09/04/20 21:48 09/04/20 22:25 Morphine Sulfate 4 Mg Inj IV 09/04/20 21:49 4 mg STAT ONE Administration Morphine Sulfate Confirm 09/04/20 22:19 Morphine Sulfate 4 Mg Inj Administered 09/04/20 22:20 Dose 4 mg .ROUTE .STK-MED ONE Ondansetron HCl 4 mg 09/04/20 21:48 09/04/20 22:23 Zofran 4 Mg/2 Ml Vial IV 09/04/20 21:49 4 mg STAT ONE Administration Ondansetron HCl Confirm 09/04/20 22:19 Zofran 4 Mg/2 Ml Vial Administered 09/04/20 22:20 Dose 4 mg .ROUTE .STK-MED ONE Piperacillin Sod/Tazobactam Sod Confirm 09/04/20 22:20 Zosyn 3.375 Gm Vial Administered 09/04/20 22:21 Dose 3.375 gm IV .[facility]-MED ONE Lab/Rad Data: Laboratory Result Diagrams 09/04/20 22:15 09/04/20 22:15 Laboratory Results 09/04/20 09/04/20 09/04/20 Range/Units 22:15 22:15 22:05 WBC 11.3 H (4.0-10.5) K/mm3 RBC 4.77 (4.1-5.4) M/mm3 Hgb 13.5 (12.0-16.0) gm/dl Hct 42.0 (35-47) % MCV 88.1 (78-100) fl MCH 28.3 (26-32) pg MCHC 32.1 (32-36) g/dl RDW 13.5 (11.5-14.0) % Plt Count 239 (150-450) K/mm3 MPV 9.8 (7.5-11.0) fl Gran % 68.4 H (36.0-66.0) % Eos # (Auto) 0.15 (0-0.5) Absolute Lymphs (auto) 2.55 (1.0-4.6) Absolute Monos (auto) 0.81 (0.0-1.3) Lymphocytes % 22.7 L (24.0-44.0) % Monocytes % 7.2 (0.0-12.0) % Eosinophils % 1.3 (0.00-5.0) % Basophils % 0.4 (0.0-0.4) % Absolute Granulocytes 7.70 H (1.4-6.9) Basophils # 0.04 (0-0.4) Sodium 135 L (137-145) mmol/L Potassium 4.0 (3.5-5.1) mmol/L Chloride 102 (98-107) mmol/L Carbon Dioxide 26 (22-30) mmol/L Anion Gap 10.5 (5-15) MEQ/L BUN 3 L (7-17) mg/dL Creatinine 0.44 L (0.52-1.04) mg/dL Estimated GFR > 60.0 ML/MIN Glucose 301 H (74-106) mg/dL Lactic Acid 2.2 H (0.4-2.0) Calcium 9.3 (8.4-10.2) mg/dL Total Bilirubin 0.60 (0.2-1.3) mg/dL AST 20 (14-36) U/L ALT 16 (0-35) U/L Alkaline Phosphatase 85 (38-126) U/L Serum Total Protein 7.5 (6.3-8.2) g/dL Albumin 4.2 (3.5-5.0) g/dL - Progress Progress: pain not gone completely Progress Note: 09/05/20 00:18 44 years old diabetic is evaluated for pubic area swelling the developing abscess. She does not have any fluctuation. I have given her pain medication and started her on IV antibiotics Zosyn and vancomycin. She has a white count of 11, lactate of 2.2. CT pelvis with contrast showing cellulitis with minimal fluid collection which could be a small abscess of 1.3 cm. At this point no signs of Sajan gangrene. CT also showed findings of ileus but patient has good bowel sounds and has bowel movement today, no abdominal pain nausea or vomiting. Discussed with Dr. Islas and patient is admitted. Plan discussed with patient who understand and agrees with it. Will see patient in: hospital (observation) Counseled pt/family regarding: lab results, diagnosis, rad results - Departure Departure Disposition: Observation Clinical Impression: Cellulitis of pubic region Condition: Stable Critical Care Time: No Referrals: HAMILTON EDWARDS DO [Primary Care Provider] -
[2020-09-05] MEDS ORDERED: HUMULIN R SQ ONE (00:17)
[2020-09-05] MEDS ORDERED: HUMULIN R ONE (00:36)
[2020-09-05] MEDS ORDERED: TYLENOL 325 MG PO PRN (00:58)
[2020-09-05] MEDS ORDERED: VANCOCIN 1 GM VIAL*** 1 GM in Sodium Chloride 0.9% 250 ML 250 ML IV SCH (00:58)
[2020-09-05] MEDS ORDERED: Zofran 4 MG/2 ML VIAL IV PRN (00:58)
[2020-09-05] MEDS: MORPHINE SULFATE 2 MG INJ IV PRN ×5 (01:40→20:39)
[2020-09-05] MEDS ORDERED: Zosyn 3.375 GM Vial IV ONE (05:00)
[2020-09-05] MEDS ORDERED: Sodium Chloride 100ML MINI-BAG PLUS 100 ML IV ONE (05:02)
[2020-09-05] MEDS: Zosyn 3.375 GM Vial 3.375 GM in Sodium Chloride 100ML MINI-BAG PLUS 100 ML IV SCH ×3 (05:33→19:01)
[2020-09-05 06:19] LABS: Absolute Neutrophil Ct (ANC) 6.99 (1.4-6.9); BASOPHIL % 0.3 % (0.0-0.4); Basophil (Absolute #) 0.03 (0-0.4); Eosinophil % 1.9 % (0.00-5.0); Eosinophil (Absolute #) 0.19 (0-0.5); Hematocrit 40.1 % (35-47); Hemoglobin 12.6 gm/dl (12.0-16.0); Lymphocyte (Absolute #) 1.99 (1.0-4.6); Lymphocytes % 19.9 % (24.0-44.0); Mean Cell Volume 88.7 fl (78-100); Mean Corpuscular Hemoglobin 27.9 pg (26-32); Mean Corpuscular Hgb Concent. 31.4 g/dl (32-36); Mean Platelet Volume 9.4 fl (7.5-11.0); Monocyte (Absolute #) 0.78 (0.0-1.3); Monocytes % 7.8 % (0.0-12.0); Neutrophil % 70.1 % (36.0-66.0); Platelet Count 217 K/mm3 (150-450); Red Blood Count 4.52 M/mm3 (4.1-5.4); Red Cell Distribution Width 13.6 % (11.5-14.0)
[2020-09-05 06:37] LABS: ALBUMIN 3.7 g/dL (3.5-5.0); ALKALINE PHOSPHATASE 73 U/L (38-126); ANION GAP 9.9 MEQ/L (5-15); BLOOD UREA NITROGEN 5 mg/dL (7-17); CHLORIDE 105 mmol/L (98-107); Calcium 8.6 mg/dL (8.4-10.2); Carbon Dioxide 23 mmol/L (22-30); Creatinine 1 0.45 mg/dL (0.52-1.04); EST GLOMERULAR FILTRATION RATE > 60.0 ML/MIN; Glucose 284 mg/dL (74-106); Potassium 3.7 mmol/L (3.5-5.1); SGOT/AST 18 U/L (14-36); SGPT/ALT 14 U/L (0-35); SODIUM 134 mmol/L (137-145); Total Protein 6.7 g/dL (6.3-8.2)
--- NOTE | 2020-09-05 07:25 | XRAY ---
Indication: Abscess. R/O Sajan gangrene. Multiple contiguous axial images obtained through the pelvis only using 80 cc Isovue 370 contrast. Cutaneous marker placed over region of interest. Comparison: March 18, 2018. Cutaneous BB overlies the left mons pubis where there is underlying moderate cutaneous/subcutaneous induration favoring cellulitis. Left labia majora demonstrates 1.3 cm fluid collection, possible developing abscess. No other walled off fluid collection or subcutaneous emphysema. Visualized bowel loops appear nonobstructed. New 3 cm right ovary cyst. Remaining uterus, urinary bladder, and iliac vessels are unremarkable. Osseous structures intact again with lumbosacral junction degenerative disc disease. No suspicious bony lesions. Impression: 1. Cellulitis involving the mons pubis and left labia majora. Left labia majora 1.3 cm subcutaneous fluid collection, possible developing abscess. 2. Incidental 3 cm right ovary cyst better evaluated with pelvic sonogram if clinically warranted. Comment: Preliminary interpretation was made by [facility]. No critical discrepancy.
[2020-09-05] MEDS: VANCOMYCIN 1 GRAM/200 ML BAG 1 GM/200 ML PIGGYBACK IV SCH ×3 (08:39→23:02)
[2020-09-05] MEDS: HUMALOG SQ PRN ×4 (08:44→21:21)
[2020-09-05] MEDS: Pepcid 20 MG VIAL IV SCH ×2 (10:21→21:21)
--- NOTE | 2020-09-05 15:49 | PCM.HP ---
History of Present Illness - Chief Complaint Chief Complaint: PUBIC AREA CELLULITIS History of Present Illness: is a 44 year old female with untreated DM2 due to not having medical insurance. She is a loss control manager at [employer] .States she had been on Metformin and Jardiance but in reviewing her pharmacy records it was Januvia NOT Jardiance. She was diagnosed with cellulitis left pubic and groin area,started on Vancomycin and Zosyn in ER. Is not currently on Diabetic me ds,last PCP visit was MAY 2019. Started on sliding scale insulin and diabetic diet and Basal insulin . - Review of Systems Constitutional: Fatigue Eyes: No Symptoms Ears, Nose, & Throat: No Symptoms Respiratory: No Symptoms Cardiac: Other (fast heart beat since pain started) Abdominal/Gastrointestinal: No Symptoms Genitourinary Symptoms: No Symptoms Musculoskeletal: Back Pain (chronic) Skin: Cellulitis (see HPI) Neurological: No Symptoms Psychological: Anxiety (stress) Endocrine: No Symptoms Hematologic/Lymphatic: No Symptoms Medications & Allergies Home Medications: Home Medication List No Reportable Medications [No Reported Medications] 09/04/20 [History Confirmed 09/04/20] Allergies/Adverse Reactions: Allergies Allergy/AdvReac Type Severity Reaction Status Date / Time tomato Allergy Verified 09/04/20 21:25 - Past Medical History Past Medical History: Yes Neurological History: No Pertinent History ENT History: No Pertinent History Cardiac History: High Cholesterol Respiratory History: No Pertinent History Endocrine Medical History: Diabetes Type II Musculoskelatal History: Other GI Medical History: No Pertinent History History: No Pertinent History Pyscho-Social History: No Pertinent History Reproductive Disorders: No Pertinent History Comment: PT. IS A SMOKER NAD HAS HX CHRONIC HIP PN. TUBAL LIGATION, AND ORAL SURGERY; HX MARIJUANA USE - Female History Are you now?: No (unkn) - Past Surgical History Past Surgical History: Yes Neuro Surgical History: No Pertinent History Cardiac History: No Pertinent History Respiratory Surgery: No Pertinent History GI Surgical History: No Pertinent History Genitourinary Surgical Hx: No Pertinent History Musculskeletal Surgical Hx: No Pertinent History Female Surgical History: Tubal Ligation Other Surgical History: oral surgery, ear drum cauterization, - Social History Smoking Status: Current every day smoker How long have you smoked: 22 yrs Exposure to second hand smoke: Yes Alcohol: None Drug Use: none Significant Family History: hypertension (mother) - Physical Exam Vital Signs: Vital Signs - 24 hr Temp Pulse Resp BP Pulse Ox 09/05/20 12:00 96.2 F 84 18 125/67 97 09/05/20 07:22 98.7 F 92 H 22 131/78 96 09/05/20 03:50 98.5 F 92 H 18 121/72 97 09/05/20 01:15 98.5 F 83 20 141/93 97 09/05/20 00:19 98 09/05/20 00:08 94 H 138/91 99 09/04/20 23:01 97 H 128/105 98 09/04/20 22:51 99 H 167/99 98 09/04/20 21:27 98.8 F 111 H 16 160/103 99 General Appearance: mild distress (due to discomfort pubic area) Neurologic Exam: alert, oriented x 3, cooperative, normal mood/affect Eye Exam: eyes nml inspection Ears, Nose, Throat Exam: moist mucous membranes, other (tooth decay,most front teeth are broken off at the root) Neck Exam: normal inspection Respiratory Exam: normal breath sounds Cardiovascular Exam: regular rate/rhythm Gastrointestinal/Abdomen Exam: soft, normal bowel sounds (nontender) Pelvic Exam: not done Rectal Exam: not done Back Exam: other (no CVA tenderness) Extremity Exam: other (no edema) Skin Exam: warm, dry, other (left pubic area with red flat raised indurated 3x8 cm area with surrounding redness into left groin No pustules or drainage.) Wound Assessment: Skin/Wound Assessment Wound/Incision Assessment Start: 09/05/20 01:02 Text: Status: Active Freq: Q6H Protocol: Document 09/05/20 14:00 AR (Rec: 09/05/20 14:17 AR [id number]) Wound/Incision Assessment Left Other Wound Type abscess Drainage Amount Minimal Drainage Description Serosanguineous Drainage Odor None/Absent General Appearance Open to air,Reddened,Draining Length (cm) (cm) 7 Width (cm) (cm) 6 Results - Labs Lab/Micro Results: Lab Results-Last 24 Hours 09/04/20 09/04/20 09/04/20 Range/Units 22:05 22:15 22:15 WBC 11.3 H (4.0-10.5) K/mm3 RBC 4.77 (4.1-5.4) M/mm3 Hgb 13.5 (12.0-16.0) gm/dl Hct 42.0 (35-47) % MCV 88.1 (78-100) fl MCH 28.3 (26-32) pg MCHC 32.1 (32-36) g/dl RDW 13.5 (11.5-14.0) % Plt Count 239 (150-450) K/mm3 MPV 9.8 (7.5-11.0) fl Gran % 68.4 H (36.0-66.0) % Eos # (Auto) 0.15 (0-0.5) Absolute Lymphs (auto) 2.55 (1.0-4.6) Absolute Monos (auto) 0.81 (0.0-1.3) Lymphocytes % 22.7 L (24.0-44.0) % Monocytes % 7.2 (0.0-12.0) % Eosinophils % 1.3 (0.00-5.0) % Basophils % 0.4 (0.0-0.4) % Absolute Granulocytes 7.70 H (1.4-6.9) Basophils # 0.04 (0-0.4) Sodium 135 L (137-145) mmol/L Potassium 4.0 (3.5-5.1) mmol/L Chloride 102 (98-107) mmol/L Carbon Dioxide 26 (22-30) mmol/L Anion Gap 10.5 (5-15) MEQ/L BUN 3 L (7-17) mg/dL Creatinine 0.44 L (0.52-1.04) mg/dL Estimated GFR > 60.0 ML/MIN Glucose 301 H (74-106) mg/dL POC Glucometer (74 to 106) mg/dL Hemoglobin A1c (4.5-6.0) % Lactic Acid 2.2 H (0.4-2.0) Calcium 9.3 (8.4-10.2) mg/dL Total Bilirubin 0.60 (0.2-1.3) mg/dL AST 20 (14-36) U/L ALT 16 (0-35) U/L Alkaline Phosphatase 85 (38-126) U/L Serum Total Protein 7.5 (6.3-8.2) g/dL Albumin 4.2 (3.5-5.0) g/dL Urine HCG, Qual (Negative) 09/04/20 09/05/20 09/05/20 Range/Units 23:52 00:16 04:30 WBC (4.0-10.5) K/mm3 RBC (4.1-5.4) M/mm3 Hgb (12.0-16.0) gm/dl Hct (35-47) % MCV (78-100) fl MCH (26-32) pg MCHC (32-36) g/dl RDW (11.5-14.0) % Plt Count (150-450) K/mm3 MPV (7.5-11.0) fl Gran % (36.0-66.0) % Eos # (Auto) (0-0.5) Absolute Lymphs (auto) (1.0-4.6) Absolute Monos (auto) (0.0-1.3) Lymphocytes % (24.0-44.0) % Monocytes % (0.0-12.0) % Eosinophils % (0.00-5.0) % Basophils % (0.0-0.4) % Absolute Granulocytes (1.4-6.9) Basophils # (0-0.4) Sodium (137-145) mmol/L Potassium (3.5-5.1) mmol/L Chloride (98-107) mmol/L Carbon Dioxide (22-30) mmol/L Anion Gap (5-15) MEQ/L BUN (7-17) mg/dL Creatinine (0.52-1.04) mg/dL Estimated GFR ML/MIN Glucose (74-106) mg/dL POC Glucometer (74 to 106) mg/dL Hemoglobin A1c 10.69 H (4.5-6.0) % Lactic Acid 1.7 (0.4-2.0) Calcium (8.4-10.2) mg/dL Total Bilirubin (0.2-1.3) mg/dL AST (14-36) U/L ALT (0-35) U/L Alkaline Phosphatase (38-126) U/L Serum Total Protein (6.3-8.2) g/dL Albumin (3.5-5.0) g/dL Urine HCG, Qual NEGATIVE (Negative) 10/25/20 10/25/20 10/25/20 Range/Units 05:50 05:50 07:34 WBC 10.0 (4.0-10.5) K/mm3 RBC 4.52 (4.1-5.4) M/mm3 Hgb 12.6 (12.0-16.0) gm/dl Hct 40.1 (35-47) % MCV 88.7 (78-100) fl MCH 27.9 (26-32) pg MCHC 31.4 L (32-36) g/dl RDW 13.6 (11.5-14.0) % Plt Count 217 (150-450) K/mm3 MPV 9.4 (7.5-11.0) fl Gran % 70.1 H (36.0-66.0) % Eos # (Auto) 0.19 (0-0.5) Absolute Lymphs (auto) 1.99 (1.0-4.6) Absolute Monos (auto) 0.78 (0.0-1.3) Lymphocytes % 19.9 L (24.0-44.0) % Monocytes % 7.8 (0.0-12.0) % Eosinophils % 1.9 (0.00-5.0) % Basophils % 0.3 (0.0-0.4) % Absolute Granulocytes 6.99 H (1.4-6.9) Basophils # 0.03 (0-0.4) Sodium 134 L (137-145) mmol/L Potassium 3.7 (3.5-5.1) mmol/L Chloride 105 (98-107) mmol/L Carbon Dioxide 23 (22-30) mmol/L Anion Gap 9.9 (5-15) MEQ/L BUN 5 L (7-17) mg/dL Creatinine 0.45 L (0.52-1.04) mg/dL Estimated GFR > 60.0 ML/MIN Glucose 284 H (74-106) mg/dL POC Glucometer 292 H (74 to 106) mg/dL Hemoglobin A1c (4.5-6.0) % Lactic Acid (0.4-2.0) Calcium 8.6 (8.4-10.2) mg/dL Total Bilirubin 0.60 (0.2-1.3) mg/dL AST 18 (14-36) U/L ALT 14 (0-35) U/L Alkaline Phosphatase 73 (38-126) U/L Serum Total Protein 6.7 (6.3-8.2) g/dL Albumin 3.7 (3.5-5.0) g/dL Urine HCG, Qual (Negative) 09/05/20 Range/Units 12:18 WBC (4.0-10.5) K/mm3 RBC (4.1-5.4) M/mm3 Hgb (12.0-16.0) gm/dl Hct (35-47) % MCV (78-100) fl MCH (26-32) pg MCHC (32-36) g/dl RDW (11.5-14.0) % Plt Count (150-450) K/mm3 MPV (7.5-11.0) fl Gran % (36.0-66.0) % Eos # (Auto) (0-0.5) Absolute Lymphs (auto) (1.0-4.6) Absolute Monos (auto) (0.0-1.3) Lymphocytes % (24.0-44.0) % Monocytes % (0.0-12.0) % Eosinophils % (0.00-5.0) % Basophils % (0.0-0.4) % Absolute Granulocytes (1.4-6.9) Basophils # (0-0.4) Sodium (137-145) mmol/L Potassium (3.5-5.1) mmol/L Chloride (98-107) mmol/L Carbon Dioxide (22-30) mmol/L Anion Gap (5-15) MEQ/L BUN (7-17) mg/dL Creatinine (0.52-1.04) mg/dL Estimated GFR ML/MIN Glucose (74-106) mg/dL POC Glucometer 231 H (74 to 106) mg/dL Hemoglobin A1c (4.5-6.0) % Lactic Acid (0.4-2.0) Calcium (8.4-10.2) mg/dL Total Bilirubin (0.2-1.3) mg/dL AST (14-36) U/L ALT (0-35) U/L Alkaline Phosphatase (38-126) U/L Serum Total Protein (6.3-8.2) g/dL Albumin (3.5-5.0) g/dL Urine HCG, Qual (Negative) Accuchecks Date 09/05/20 Date 09/05/20 Time 11:30 Time 07:30 - Radiology Impressions Radiology Exams & Impressions: Radiology Procedures Category Date Time Status PELVIS WITH CONTRAST [CT] Stat Exams 09/04/20 21:45 Completed Assessment/Plan (1) Cellulitis of pubic region Current Visit: Yes Status: Acute Assessment & Plan: improved with Zosyn and Vancomycin,less pain and less redness Code(s): L03.319 - CELLULITIS OF TRUNK, UNSPECIFIED (2) Type 2 diabetes mellitus Current Visit: No Status: Chronic Qualifiers: Diabetes mellitus intermediate manager insulin use: without intermediate manager use Diabetes mellitus complication status: with hyperglycemia Qualified Code(s): E11.65 - Type 2 diabetes mellitus with hyperglycemia (3) Tooth decay Current Visit: Yes Status: Chronic Assessment & Plan: multiple teeth broken off with surrounding gum inflammation Code(s): K02.9 - DENTAL CARIES, UNSPECIFIED
[2020-09-05] MEDS: Lantus Insulin SQ SCH (21:21)
[2020-09-06] MEDS: Zosyn 3.375 GM Vial 3.375 GM in Sodium Chloride 100ML MINI-BAG PLUS 100 ML IV SCH ×4 (00:32→19:01)
[2020-09-06 07:31] LABS: Absolute Neutrophil Ct (ANC) 3.95 (1.4-6.9); BASOPHIL % 0.8 % (0.0-0.4); Basophil (Absolute #) 0.05 (0-0.4); Eosinophil % 2.7 % (0.00-5.0); Eosinophil (Absolute #) 0.18 (0-0.5); Hematocrit 39.9 % (35-47); Hemoglobin 12.6 gm/dl (12.0-16.0); Lymphocyte (Absolute #) 1.77 (1.0-4.6); Mean Cell Volume 89.1 fl (78-100); Mean Corpuscular Hemoglobin 28.1 pg (26-32); Mean Corpuscular Hgb Concent. 31.6 g/dl (32-36); Mean Platelet Volume 9.2 fl (7.5-11.0); Monocytes % 9.2 % (0.0-12.0); Neutrophil % 60.3 % (36.0-66.0); Platelet Count 216 K/mm3 (150-450); Red Blood Count 4.48 M/mm3 (4.1-5.4); Red Cell Distribution Width 13.6 % (11.5-14.0); White Blood Count 6.6 K/mm3 (4.0-10.5)
[2020-09-06] MEDS: VANCOMYCIN 1 GRAM/200 ML BAG 1 GM/200 ML PIGGYBACK IV SCH ×3 (08:22→23:10)
[2020-09-06] MEDS: NORCO 5/325 MG PO PRN ×3 (08:57→20:19)
[2020-09-06] MEDS: Pepcid 20 MG VIAL IV SCH ×2 (08:59→21:30)
[2020-09-06 09:21] LABS: BLOOD UREA NITROGEN 4 mg/dL (7-17); CHLORIDE 103 mmol/L (98-107); Calcium 8.7 mg/dL (8.4-10.2); Carbon Dioxide 24 mmol/L (22-30); Creatinine 1 0.54 mg/dL (0.52-1.04); EST GLOMERULAR FILTRATION RATE > 60.0 ML/MIN; Glucose 318 mg/dL (74-106); Potassium 4.1 mmol/L (3.5-5.1); SODIUM 134 mmol/L (137-145)
[2020-09-06] MEDS: ENOXAPARIN SODIUM SQ SCH (10:13)
[2020-09-06] MEDS: HUMALOG SQ PRN ×3 (12:44→21:30)
[2020-09-06] MEDS: Nicoderm CQ 21 MG TOP SCH (14:52)
--- NOTE | 2020-09-06 15:41 | CONS ---
CONSULT DATE: 09/06/2020 This patient is seen for Dr. Price Garcia who was occupational safety and health manager for our group today. Consult was called today. HISTORY: A 44 year old female has diabetes but has not been taking treatments. She works fast food. She has cellulitis left labia majora. She is afebrile. Vital signs stable. PAST MEDICAL HISTORY: As mentioned above, diabetes, high cholesterol. PAST SURGICAL HISTORY: Tubal. Oral surgery. She had some eardrum cauterization in the past. FAMILY HISTORY: Negative in regards to this problem. SOCIAL HISTORY: Smoking. She used marijuana in the past. REVIEW OF SYSTEMS: Fourteen systems reviewed. No current chest pain or palpitations. She has chronic hip pain since she had this reddened cellulitis left labial area extending up towards the pubis area. It has been going on for three to four days. She has diabetes not under medical management. She has got infection left labia majora as well as cellulitis extending to the pubic area, also has a recurrent cyst. LAB DATA AND TESTS: White count 11, hemoglobin 13.5, PLT 235,000. She is afebrile here. Her glucose is 284 on the lab yesterday. PHYSICAL EXAMINATION: GENERAL: No acute distress. HEENT: Sclera nonicteric. Poor dentition. NECK: No JVD. CHEST: Equal excursion, nonlabored breathing. CVS: Regular rhythm and pulse. ABDOMEN: Soft, nondistended. : Her left labia majora has cellulitis and infection. There is some spontaneous drainage, extending up towards to the mons on this side. She had a ruptured cyst site. She does have some spontaneous drainage. She is afebrile and hemodynamically stable. She is on IV antibiotics. EXTREMITIES: No cyanosis. NEURO: Alert, moving extremities symmetrically. IMPRESSION: Infection of labia majora. CT scan cellulitis involving mons pubis and left labia majora, ovarian cyst. She had a ruptured cyst site and there is some spontaneous drainage. She is on IV antibiotics. No emergent surgery but given location of labia majora a letter carrier with privileges here would be appropriate in regards to this given location. It may need to be packed. Either way continue IV antibiotics. I will defer this given location to gynecology at this time. Again, this patient is seen for Dr. Price Garcia who was occupational safety and health manager for our group today. I was down here doing outpatient procedures and he asked that I check on the patient for him.
--- NOTE | 2020-09-06 18:35 | PCM.NOTE ---
Date and Time: 09/06/201834 Objective Exam Wound Assessment: Skin/Wound Assessment Wound/Incision Assessment Start: 09/05/20 01:02 Text: Status: Active Freq: Q6H Protocol: Document 09/06/20 14:00 AR (Rec: 09/06/20 15:11 AR [id number]) Wound/Incision Assessment Left Other Wound Assessment Shift Assessment Wound Type CELLULITIS Drainage Amount Minimal Drainage Description Serosanguineous Drainage Odor None/Absent General Appearance Open to air,Reddened,Draining OBJECTIVE DATA Vital Signs: Vital Signs - 24 hr Temp Pulse Resp BP Pulse Ox 09/06/20 16:00 97.7 F 73 22 120/72 98 09/06/20 12:00 98.2 F 73 20 122/55 96 09/06/20 07:18 97.8 F 80 18 120/76 95 09/06/20 04:00 98.1 F 82 16 115/58 96 09/05/20 23:54 97.8 F 86 16 130/88 97 09/05/20 20:00 97.9 F 90 18 133/96 97 Pain Assessment - Last Documented Pain Intensity 0 Pain Scale Used 0-10 Pain Scale Intake and Output: Intake & Output 09/04/20 09/05/20 09/06/20 09/07/20 11:59 11:59 11:59 11:59 Intake Total 685 1859 240 Output Total 300 1000 Balance 385 859 240 Weight 105.4 kg 105.3 kg Lab Results: Lab Results-Last 24 Hours 09/05/20 09/06/20 09/06/20 Range/Units 20:57 06:55 07:16 WBC 6.6 (4.0-10.5) K/mm3 RBC 4.48 (4.1-5.4) M/mm3 Hgb 12.6 (12.0-16.0) gm/dl Hct 39.9 (35-47) % MCV 89.1 (78-100) fl MCH 28.1 (26-32) pg MCHC 31.6 L (32-36) g/dl RDW 13.6 (11.5-14.0) % Plt Count 216 (150-450) K/mm3 MPV 9.2 (7.5-11.0) fl Gran % 60.3 (36.0-66.0) % Eos # (Auto) 0.18 (0-0.5) Absolute Lymphs (auto) 1.77 (1.0-4.6) Absolute Monos (auto) 0.60 (0.0-1.3) Lymphocytes % 27.0 (24.0-44.0) % Monocytes % 9.2 (0.0-12.0) % Eosinophils % 2.7 (0.00-5.0) % Basophils % 0.8 (0.0-0.4) % Absolute Granulocytes 3.95 (1.4-6.9) Basophils # 0.05 (0-0.4) Sodium (137-145) mmol/L Potassium (3.5-5.1) mmol/L Chloride (98-107) mmol/L Carbon Dioxide (22-30) mmol/L Anion Gap (5-15) MEQ/L BUN (7-17) mg/dL Creatinine (0.52-1.04) mg/dL Estimated GFR ML/MIN Glucose (74-106) mg/dL POC Glucometer 242 H 307 H (74 to 106) mg/dL Calcium (8.4-10.2) mg/dL 09/06/20 09/06/20 09/06/20 Range/Units 07:16 11:19 15:57 WBC (4.0-10.5) K/mm3 RBC (4.1-5.4) M/mm3 Hgb (12.0-16.0) gm/dl Hct (35-47) % MCV (78-100) fl MCH (26-32) pg MCHC (32-36) g/dl RDW (11.5-14.0) % Plt Count (150-450) K/mm3 MPV (7.5-11.0) fl Gran % (36.0-66.0) % Eos # (Auto) (0-0.5) Absolute Lymphs (auto) (1.0-4.6) Absolute Monos (auto) (0.0-1.3) Lymphocytes % (24.0-44.0) % Monocytes % (0.0-12.0) % Eosinophils % (0.00-5.0) % Basophils % (0.0-0.4) % Absolute Granulocytes (1.4-6.9) Basophils # (0-0.4) Sodium 134 L (137-145) mmol/L Potassium 4.1 (3.5-5.1) mmol/L Chloride 103 (98-107) mmol/L Carbon Dioxide 24 (22-30) mmol/L Anion Gap 11.0 (5-15) MEQ/L BUN 4 L (7-17) mg/dL Creatinine 0.54 (0.52-1.04) mg/dL Estimated GFR > 60.0 ML/MIN Glucose 318 H (74-106) mg/dL POC Glucometer 252 H 255 H (74 to 106) mg/dL Calcium 8.7 (8.4-10.2) mg/dL Radiology Exams: Radiology Procedures Category Date Time Status PELVIS WITH CONTRAST [CT] Stat Exams 09/04/20 21:45 Completed Multi-Disciplinary Progress Notes: Multi-Disciplinary Progress Notes 09/06/20 11:13 Case Management Note by Elicia Roman REPORTS PATIENT NOW HAS PRESUMPTIVE MEDICAID. PATIENT'S PHARMACY OF CHOICE CHANGED TO [facility] (THEY HONOR THE PRESUMPTIVE LETTER). NOTE REGARDING CHEAP INSULIN AT [facility] REMOVED FROM CHART BUT WILL GIVE INFORMATION TO PATIENT IN CASE SHE LOSES COVERAGE IN THE FUTURE Initialized on 09/06/20 11:13 - END OF NOTE 09/06/20 10:11 Case Management Note by Elicia Roman Addendum entered by Elicia Roman 09/06/20 10:28: EMAIL ALREADY SENT TO [facility] THIS AM. WILL GIVE PATIENT RX DISCOUNT CARD WELL Original Note: PATIENT DOES NOT QUALIFY FOR MEDICAID AND STATES SHE CAN ALSO NOT AFFORD THE INSURANCE THRU HER WORK. I S/W HER ABOUT THE COST OF LANTUS (>300 PER [facility]) SHE STATED THIS WAS ALSO NOT AFFORDABLE. I CALLED AND S/W [facility] PHARMACIST HE REPORTS THE CHEAPEST INSULINS THEY HAVE ARE FOLLOWS: RELION NOVOLIN N VIAL RELION NOVOLIN R VIAL RELION NOVOLIN 70/30 (APPEARS TO COME IN VIAL OR PEN) ALL VIALS ARE $24.88 FOR 10 ML (1,000 UNITS) NEEDLES ARE $12.58 FOR A BOX OF [address] NOTE ON FRONT OF CHART FOR MD TO SEE Initialized on 09/06/20 10:11 - END OF NOTE
[2020-09-06] MEDS: Lantus Insulin SQ SCH (21:30)
[2020-09-07] MEDS: Zosyn 3.375 GM Vial 3.375 GM in Sodium Chloride 100ML MINI-BAG PLUS 100 ML IV SCH ×4 (00:46→18:10)
[2020-09-07] MEDS ORDERED: TROUGH DRUG LEVELS IJ ONE (07:30)
[2020-09-07] MEDS: VANCOMYCIN 1 GRAM/200 ML BAG 1 GM/200 ML PIGGYBACK IV SCH (08:44)
[2020-09-07] MEDS: HUMALOG SQ PRN ×3 (08:51→16:00)
[2020-09-07] MEDS: NORCO 5/325 MG PO PRN (08:56)
[2020-09-07] MEDS: Nicoderm CQ 21 MG TOP SCH (08:57)
[2020-09-07] MEDS: ENOXAPARIN SODIUM SQ SCH (08:58)
[2020-09-07] MEDS: Pepcid 20 MG VIAL IV SCH (09:35)
--- NOTE | 2020-09-07 13:11 | PCM.DS ---
Discharge Summary Date of Admission: 09/05/20 00:55 Date of Discharge: 09/07/20 Admitting Physician: HAMILTON EDWARDS DO Consults: Consults on Case 09/06/20 06:24 Consult Surgery ROUTINE 09/06/20 11:15 Consult Physician ROUTINE Primary Care Provider: HAMILTON EDWARDS DO Allergies Allergies tomato Allergy (Verified 09/04/20 21:25) Hospital Summary - Hospital Course Hospital Course: 44 years old morbidly obese female with a history of diabetes mellitus presented to the ER with pubic swelling which she noticed 2 days ago and is gradually worsening. Patient report initially it was a pea size currently involves the whole left half of pubic area associated with moderate intensity sharp throbbing pain which gets worse with movement and palpation and better with taking [id number] pain medication. She denies associated fever or chills. She tried to squeeze it with minimal discharge earlier. Denies any difficulty urination or abdominal/pelvic pain. Denies history of MRSA. Blood sugar is fairly controlled per patient. Patient was admitted for cellulitis. Patient was started on vanc and zosyn. Blood cultures were obtained but no wound culture was obtained prior to starting antibiotics. Patient was also found to have poor dentition upon admission. Patient has given multiple medical histories so unsure what is accurate. Patient reported to ER doctor that she had not had MRSA in the past but reported to myself and other staff that she has had MRSA and that she is likely colonized. She also reported well controlled diabetes to ER doctor and admitting physician however patient reported to me that she has not had any of her diabetic medications because she has been without insurance and couldnt afford her medications. Admitting physician was concerned about nec fascitis because of use of one of the diabetic meds. Surgery was consulted and consulted [facility]. Patient had been on IV antibiotics for 1-2 days and wanted to go home. I discussed that this would be against medical advice as she could not tolerate the pain and due to concern for poor compliance. Surgery was not recommended by the specialist so medical management was continued. Patient's pain has improved and area of erythema has shrunk from line of demarcation. Underlying abscess was draining. Patient again requested to go home. Patient was set up with presumptive medicaid. Patient will be discharged on clinda to cover for suspected MRSA. She will be given a short course of pain medication. She will h ave diabetic meds sent in as well as meter and strips for her to start managing her diabetes. - Vitals & Intake/Output Vital Signs: Vital Signs Temperature 98.0 F 09/07/20 12:00 Pulse Rate 85 09/07/20 12:00 Respiratory Rate 20 09/07/20 12:00 Blood Pressure 113/56 09/07/20 12:00 O2 Sat by Pulse Oximetry 94 L 09/07/20 12:00 Intake & Output: Intake & Output 09/05/20 09/06/20 09/07/20 09/08/20 11:59 11:59 11:59 11:59 Intake Total 685 1859 600 Output Total 300 1000 Balance 385 859 600 Weight 105.4 kg 105.3 kg - Lab Result Diagrams: 09/06/20 07:16 09/06/20 07:16 Lab Results-Last 24 Hrs: Lab Results-Last 24 Hours 09/06/20 09/06/20 09/07/20 Range/Units 15:57 21:22 07:20 POC Glucometer 255 H 234 H 168 H (74 to 106) mg/dL Vancomycin Trough (10-20) ug/mL 09/07/20 09/07/20 Range/Units 07:33 11:45 POC Glucometer 289 H (74 to 106) mg/dL Vancomycin Trough 6.61 L (10-20) ug/mL Micro Results-Entire Visit: Microbiology 09/04/20 22:50 Blood Culture - Preliminary Blood NO GROWTH TO DATE 09/04/20 22:15 Blood Culture - Preliminary Blood NO GROWTH TO DATE Accuchecks Date 09/07/20 Date 09/07/20 Date 09/06/20 Time 11:30 Time 07:22 Time 22:00 Discharge Exam General Appearance: mild distress, anxiety, obese, other (Patient appears older than stated age. Disheveled) Neurologic Exam: alert, oriented x 3, cooperative, No normal mood/affect, No d epressed mood/affect Eye Exam: No scleral icterus Ears, Nose, Throat Exam: moist mucous membranes, other (poor dentition) Neck Exam: normal inspection Respiratory Exam: normal breath sounds, lungs clear, No respiratory distress, No diminished breath sounds Cardiovascular Exam: regular rate/rhythm, normal heart sounds, No murmur, No friction rub, No gallop Gastrointestinal/Abdomen Exam: soft, normal bowel sounds, No tenderness, No distention, No mass, No guarding Pelvic Exam: other (erythema and tenderness mons pubis and upper left labia. There is a palpable fluid collection approx 2 cm in size. There is some skin break down over the fluid collection. Less tender to palpation then yesterday's exam.) Extremity Exam: No pedal edema, No swelling, No tenderness Skin Exam: normal color, warm, dry Wound Assessment: Skin/Wound Assessment Wound/Incision Assessment Start: 09/05/20 01:02 Text: Status: Active Freq: Q6H Protocol: Document 09/07/20 08:00 [facility] ([id number] Wound/Incision Assessment Left Other Wound Assessment Shift Assessment Wound Type CELLULITIS Drainage Amount Minimal Drainage Description Serosanguineous Drainage Odor None/Absent General Appearance Open to air,Reddened,Draining Primary Dressing mesh panty with pad Final Diagnosis/Problem List - Final Discharge Diagnosis/Problem (1) Left genital labial abscess Current Visit: Yes Status: Acute Assessment & Plan: Likely MRSA infection. Patient has been on vanc and zosyn. Symptoms have improved. WBC has trended down. Patient will be discharged on clinda. She will be on this for 7 days. She will not be discharged until she has had her evening dose of antibiotics. She will get a short course of pain medication. Culture was obtained today. Will adjust antibiotics if necessary Code(s): N76.4 - ABSCESS OF VULVA (2) Cellulitis of pubic region Current Visit: Yes Status: Acute Assessment & Plan: Patient's erythema has shrunk down from original line of demarcation. Same plan as above Code(s): L03.319 - CELLULITIS OF TRUNK, UNSPECIFIED (3) Tooth decay Current Visit: Yes Status: Chronic Assessment & Plan: Patient likely needs teeth pulled. She will need to address this after discharge Code(s): K02.9 - DENTAL CARIES, UNSPECIFIED (4) Type 2 diabetes mellitus Current Visit: No Status: Chronic Assessment & Plan: Patient has not been taking her medications as reported by her. She will start on metformin and long acting insulin. Her sugars have been poorly controlled due to poor compliance and exacerbated by current infection. Meter and supplies sent to pharmacy (5) Smoker Current Visit: Yes Status: Acute Assessment & Plan: Discussed with patient smoking cessation. Recommended to patient that she could use the money for her medications as opposed to spending on cigarettes. Code(s): F17.200 - NICOTINE DEPENDENCE, UNSPECIFIED, UNCOMPLICATED - Discharge Disposition: Home, Self-Care Condition: Stable Prescriptions: New Blood-Glucose Meter [Accu-Chek Marleny Plus] 1 each MC TID #1 each Lancets 1 each MC TID #1 each Blood Sugar Diagnostic [Test Strips] 1 each MC TID #1 box Fitzpatrick, Insulin Disposable [Bd Ultra Fine Latesha] 1 each MC HS #30 dis.needle Insulin Glargine,Hum.rec.anlog [Lantus Solostar] 15 unit SQ HS #1 ml Clindamycin HCl 300 mg PO Q6H 7 Days #28 capsule Metformin HCl [Metformin HCl ER] 750 mg PO DAILY 30 Days #30 tab.er.24h Hydrocodone/APAP 5-325 Tab^^^ [Harwood 5-325 Tablet^^^] 1 tab PO Q6HPRN PRN 3 Days #10 tablet MDD 6 PRN Reason: Pain Instructions: Blood Glucose Monitoring, Cellulitis (Skin Infection), Adult (DC), Insulin Glargine Additional Instructions: TAKE YOUR PRESUMPTIVE MEDICAID PAPER WITH YOU TO THE [facility] TO GET YOUR MEDICATIONS. THEY WILL NEED THAT PAPER TO FILL YOUR PRESCRIPTIONS. Follow up with: HAMILTON EDWARDS DO [Primary Care Provider] - 09/24/20 10:00 am LINDA HICKMAN DO [ACTIVE STAFF] - 09/22/20 4:00 pm Forms: Work/School Release Form
[2020-09-07] MEDS ORDERED: VANCOMYCIN 1.5 GRAM/300 ML BAG 1.5 GM/300 ML PIGGYBACK IV SCH (16:00)
[2020-09-07 17:12] VITALS: BP 151/100; PULSE 80; O2SAT 98
== END 2020-09-07 19:15 | disposition home or self-care (01) ==
LOC: ED 21:17 → MED SURG 09-05 00:55
PROVIDERS: ADMIT Family Medicine; ATTEND Family Medicine
DX: N76.4 Abscess of vulva (principal); L03.314 Cellulitis of groin; F17.200 Nicotine dependence, unspecified, uncomplicated; Z79.899 Other long term (current) drug therapy; K02.9 Dental caries, unspecified; E11.65 Type 2 diabetes mellitus with hyperglycemia; E78.00 Pure hypercholesterolemia, unspecified
CPT/HCPCS: 36000; 36415; 72193; 80048; 80053; 80202; 82962; 83036; 83605; 84703; 85025; 87040; 87070; 96365; 96368; 96374; 96375; 99285; G0378; 99225; J1815; J1817; J2270; J2405; A9270-GY; J3370

== ENCOUNTER 2021-09-10 06:56 | Emergency (ER) | payer OTHER ==
[2021-09-10] MEDS ORDERED: PERCOCET TABLET 5/325MG PO ONE (08:09)
[2021-09-10] MEDS ORDERED: PERCOCET TABLET 5/325MG ONE (08:14)
--- NOTE | 2021-09-10 08:23 | ERPHSYRPT ---
- History of Present Illness Time Seen by Provider: 09/10/21 08:08 Source: patient, family Exam Limitations: no limitations Patient Subjective Stated Complaint: pt here for pain to right elbow after lifting on a trash bag Triage Nursing Assessment: pt alert, resp easy, ksin w/p/d. no swelling noted to elbow, has strong pulse Physician History: 45 years old female presented to the ER with chief complaint of right elbow pain since yesterday after she picked up a trash bag and felt a popping sound in the right elbow. Since then she is having moderate to severe sharp pain with minimal movements of right elbow radiating down to the wrist and fingers, aggravated with movements of fingers as well with some swelling around the elbow. No difficulty movements of right shoulder. No numbness of the fingers. No history of previous elbow surgeries. Occurred: yesterday Method of Injury: other Quality: sharpness Severity of Pain-Max: severe Severity of Pain-Current: moderate Extremities Pain Location: elbow: right Modifying Factors: Improves With: cold therapy, immobilization, rest. Worsens With: movement Associated Symptoms: none Allergies/Adverse Reactions: tomato Allergy (Verified 09/10/21 07:22) Hx Tetanus, Diphtheria Vaccination/Date Given: Yes Hx Influenza Vaccination/Date Given: No Hx Pneumococcal Vaccination/Date Given: No Immunizations Up to Date: Yes Travel Risk - International Travel Have you traveled outside of the country in past 3 weeks: No - Coronavirus Screening Are you exhibiting any of the following symptoms?: No Close contact with a COVID-19 positive Pt in past 14-21 Days: No - Vaccine Status Have you recieved a Covid-19 vaccination: No - Review of Systems Constitutional: No Symptoms Ears, Nose, & Throat: No Symptoms Respiratory: No Symptoms Cardiac: No Symptoms Abdominal/Gastrointestinal: No Symptoms Genitourinary Symptoms: No Symptoms Musculoskeletal: Joint Pain Skin: No Symptoms Neurological: No Symptoms Psychological: No Symptoms Endocrine: No Symptoms Hematologic/Lymphatic: No Symptoms - Past Medical History Pertinent Past Medical History: Yes Neurological History: No Pertinent History ENT History: No Pertinent History Cardiac History: High Cholesterol Respiratory History: No Pertinent History Endocrine Medical History: Diabetes Type II Musculoskeletal History: Other GI Medical History: No Pertinent History History: No Pertinent History Psycho-Social History: No Pertinent History Female Reproductive Disorders: No Pertinent History Other Medical History: PT. IS A SMOKER NAD HAS HX CHRONIC HIP PN. TUBAL LIGATION, AND ORAL SURGERY; HX MARIJUANA USE - Past Surgical History Past Surgical History: Yes Neuro Surgical History: No Pertinent History Cardiac: No Pertinent History Respiratory: No Pertinent History Gastrointestinal: No Pertinent History Genitourinary: No Pertinent History Musculoskeletal: No Pertinent History Female Surgical History: Tubal Ligation Other Surgical History: oral surgery, ear drum cauterization, - Social History Smoking Status: Current every day smoker How long have you smoked: 22 yrs Exposure to second hand smoke: Yes Drug Use: marijuana Patient Lives Alone: Yes Significant Family History: hypertension (mother) - Female History Hx Last Menstrual Period: aug Hx Now: No - Nursing Vital Signs Nursing Vital Signs: Initial Vital Signs Temperature 97.0 F 09/10/21 07:15 Pulse Rate 95 H 09/10/21 07:15 Respiratory Rate 18 09/10/21 07:15 Blood Pressure 167/97 09/10/21 07:15 O2 Sat by Pulse Oximetry 99 09/10/21 07:15 Pain Scale Pain Intensity 2 - Physical Exam General Appearance: no apparent distress, alert Eyes, Ears, Nose, Throat Exam: normal ENT inspection Neck Exam: normal inspection Cardiovascular/Respiratory Exam: normal breath sounds, regular rate/rhythm Shoulder Exam: normal inspection, non-tender, no evidence of injury, normal ROM Elbow/Forearm Exam: bone tenderness (Minimal bony tenderness right elbow with limited range of motion in all direction and some soft tissue swelling the proximal forearm. Distal neurovascular well intact.) Wrist Exam: normal inspection, non-tender, no evidence of injury, normal ROM Hand Exam: normal inspection, non-tender, no evidence of injury, normal ROM Neuro/Tendon Exam: normal sensation Mental Status Exam: alert, oriented x 3 Skin Exam: normal color SpO2 Interpretation: normal SpO2: 99 O2 Delivery: Room Air Ordered Tests: Active Orders 24 hr Category Date Time Status ELBOW (MINIMUM 3 VIEWS) Stat Exams 09/10/21 07:32 Taken Medication Summary Discontinued Medications Generic Name Dose Route Start Last Admin Trade Name Freq PRN Reason Stop Dose Admin Oxycodone/Acetaminophen 1 tab 09/10/21 08:09 09/10/21 08:14 Oxycodone Hcl/Apap 5 Mg/325 Mg Tablet PO 09/10/21 08:10 1 tab STAT ONE Administration Oxycodone/Acetaminophen Confirm 09/10/21 08:14 Oxycodone Hcl/Apap 5 Mg/325 Mg Tablet Administered 09/10/21 08:15 Dose 1 tab .ROUTE .STK-MED ONE - Progress Progress: pain not gone completely Progress Note: 09/10/21 08:21 She is given symptomatic treatment for pain. X-rays did not reveal any obvious fracture dislocation reviewed by me, official report is pending. I believe patient has ligamentous injury. Placed in a sling, NSAIDs, applying ice and out patient orthopedic follow up recommended. Counseled pt/family regarding: diagnosis, need for follow-up, rad results - Departure Departure Disposition: Home Clinical Impression: Elbow sprain Qualifiers: Encounter type: initial encounter Laterality: right Qualified Code(s): S53.401A - Unspecified sprain of right elbow, initial encounter Condition: Stable Critical Care Time: No Referrals: ALLAN NDIAYE [Primary Care Provider] - ANTONETTE - MANDY ALCANTARA NP [NON-STAFF PHY W/O PRIVILEGES] - (Sunday for reevaluation) JONNA CHONG MD [NON-STAFF PHY W/O PRIVILEGES] - (Sunday for reevaluation) Instructions: Elbow Sprain (DC) Additional Instructions: Apply intermittent ice. Take pain medications as needed. Avoid exertional activities with right extremity. Follow-up with primary care for reevaluation. Return to ER for worsening pain swelling or difficulty with wrist/hand/numbness weakness of right upper extremity. Prescriptions: Hydrocodone/APAP 5/325 [Clayton 5/325 mg] 1 each PO Q6H PRN PRN #10 tablet MDD 4 PRN Reason: Pain
[2021-09-10 08:48] VITALS: BP 138/88; PULSE 88; O2SAT 98
--- NOTE | 2021-09-10 08:50 | XRAY ---
Indication: Pain after lifting. Comparison: None 3 view right elbow obtained. No bony, articular, or soft tissue abnormalities.
== END 2021-09-10 08:45 | disposition critical access hospital (66) ==
LOC: ED 06:56
DX: S53.401A Unspecified sprain of right elbow, initial encounter (principal); X50.0XXA Overexertion from strenuous movement or load, initial encounter; X50.9XXA Other and unspecified overexertion or strenuous movements or postures, initial encounter; Y93.89 Activity, other specified; Y92.89 Other specified places as the place of occurrence of the external cause
CPT/HCPCS: 73080; 99283; A9270-GY

== ENCOUNTER 2023-02-20 13:20 | Emergency (ER) | payer OTHER ==
[2023-02-20] MEDS ORDERED: TORAdol 30 mg Injection IM ONE (13:41)
[2023-02-20] MEDS ORDERED: TORAdol 30 mg Injection ONE (13:44)
--- NOTE | 2023-02-20 13:48 | ERPHSYRPT ---
- History of Present Illness Source: patient Exam Limitations: no limitations Patient Subjective Stated Complaint: C/O lower back pain that started 2 days ago; increasingly worse Triage Nursing Assessment: Patient ambulated back to ER with slow gait holding her lower back on both sides with hands. She is tearful. No SOB. She is alert and oriented. Denies fall or injuries. Physician History: 47 yo Wf w Lumbar pain x 2 days. Pain is 6/10 and worse w movement. It is described as dull at rest and sharp when moving. She denies trauma/dysuria/hematuria/radiation/incontinence/focal weakness. Timing/Duration: day(s) (2 days) Method of Injury: other (No injury) Quality: dull, sharp Back Pain Location: lumbar spine Severity of Pain-Max: severe Severity of Pain-Current: moderate Modifying Factors: Improves With: movement Associated Symptoms: denies symptoms Allergies/Adverse Reactions: tomato Allergy (Verified 02/20/23 13:31) Hx Tetanus, Diphtheria Vaccination/Date Given: Yes Hx Influenza Vaccination/Date Given: No Hx Pneumococcal Vaccination/Date Given: No Immunizations Up to Date: Yes Travel Risk - International Travel Have you traveled outside of the country in past 3 weeks: No - Coronavirus Screening Are you exhibiting any of the following symptoms?: No Close contact with a COVID-19 positive Pt in past 14-21 Days: No - Vaccine Status Have you recieved a Covid-19 vaccination: No - Review of Systems Constitutional: No Symptoms Eyes: No Symptoms Ears, Nose, & Throat: No Symptoms Respiratory: No Symptoms Cardiac: No Symptoms Abdominal/Gastrointestinal: No Symptoms Genitourinary Symptoms: No Symptoms Musculoskeletal: Back Pain Skin: No Symptoms Neurological: No Symptoms Psychological: No Symptoms Endocrine: No Symptoms Hematologic/Lymphatic: No Symptoms Immunological/Allergic: No Symptoms - Past Medical History Pertinent Past Medical History: Yes Neurological History: No Pertinent History ENT History: No Pertinent History Cardiac History: High Cholesterol, Other Respiratory History: No Pertinent History Endocrine Medical History: Diabetes Type II Musculoskeletal History: Rheumatoid Arthritis GI Medical History: No Pertinent History History: No Pertinent History Psycho-Social History: No Pertinent History Female Reproductive Disorders: No Pertinent History Other Medical History: "Minor Cardiac Event" , Multiple Broken Noses - Past Surgical History Past Surgical History: Yes Neuro Surgical History: No Pertinent History Cardiac: No Pertinent History Respiratory: No Pertinent History Gastrointestinal: No Pertinent History Genitourinary: No Pertinent History Musculoskeletal: No Pertinent History Female Surgical History: Tubal Ligation Other Surgical History: oral surgery, Surgical removal of impacted teeth, Ear drum cauterization x3 (ages 6-11 years) - Social History Smoking Status: Current every day smoker How long have you smoked: 29 years Exposure to second hand smoke: Yes Drug Use: marijuana Patient Lives Alone: No Significant Family History: hypertension (mother) - Female History Hx Now: No (tubal) - Nursing Vital Signs Nursing Vital Signs: Initial Vital Signs Temperature 96.9 F 02/20/23 13:32 Pulse Rate 129 H 02/20/23 13:32 Respiratory Rate 24 02/20/23 13:32 Blood Pressure 118/81 02/20/23 13:32 O2 Sat by Pulse Oximetry 98 02/20/23 13:32 Pain Scale Pain Intensity [] 10 Pain Intensity 6 Tachy - Physical Exam General Appearance: no apparent distress (In pain) Eye Exam: PERRL/EOMI, eyes nml inspection Ears, Nose, Throat Exam: normal ENT inspection, TMs normal, pharynx normal, moist mucous membranes Neck Exam: normal inspection, non-tender, supple, full range of motion, No meningismus, No mass, No Brudzinski, No Kernig's, No carotid bruit Respiratory Exam: normal breath sounds, lungs clear, airway intact, No respiratory distress Cardiovascular Exam: tachycardia, capillary refill <2 sec, No murmur Gastrointestinal Exam: soft, normal bowel sounds, No tenderness Back Exam: vertebral tenderness (L-spine TTP), No CVA tenderness Extremity Exam: normal inspection, normal range of motion, pelvis stable Peripheral Pulses: carotid (R): 2+, carotid (L): 2+ Neurologic Exam: alert, oriented x 3, cooperative, 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, normal mood/affect, sensation nml, No motor deficits, No sensory deficit Skin Exam: normal color, warm, dry, No rash Lymphatic Exam: No adenopathy SpO2 Interpretation: normal SpO2: 98 O2 Delivery: Room Air - Course Nursing assessment & vital signs reviewed: Yes - CT Exams Lumbar Spine CT Interpretation: Discussed w/radiologist (L5-S1 DDD) Ordered Tests: Active Orders 24 hr Category Date Time Status LUMBAR SPINE W/O [CT] Stat Exams 02/20/23 14:26 Completed UA W/RFX UR CULTURE Stat Lab 02/20/23 13:42 Completed Medication Summary Discontinued Medications Generic Name Dose Route Start Last Admin Trade Name Christine PRN Reason Stop Dose Admin Ketorolac Tromethamine 30 mg 02/20/23 13:41 02/20/23 13:44 Ketorolac Tromethamine 30 Mg/Ml Inj IM 02/20/23 13:42 30 mg STAT ONE Administration Ketorolac Tromethamine Confirm 02/20/23 13:44 Ketorolac Tromethamine 30 Mg/Ml Inj Administered 02/20/23 13:45 Dose 30 mg .ROUTE .STK-MED ONE Lab/Rad Data: Laboratory Results 02/20/23 Range/Units 13:42 Urine Color Yellow (Yellow) Urine Appearance Clear (Clear) Urine pH 5.5 (4.6-8.0) Ur Specific [place]clenny >=1.030 A (1.005-1.030) Urine Protein Trace A (Negative) Urine Glucose (UA) >=1000 A (Negative) mg/dL Urine Ketones 15 A (Negative) Urine Blood Negative (Negative) Urine Nitrite Negative (Negative) Urine Bilirubin Negative (Negative) Urine Urobilinogen 0.2 (0.2) mg/dL Ur Leukocyte Esterase Negative (Negative) U Hyaline Cast (Auto) NONE SEEN (0-2) /LPF Urine Microscopic RBC 0-2 (0-5) /HPF Urine Microscopic WBC 3-5 (0-5) /HPF Ur Epithelial Cells Rare (None Seen) /HPF Urine Bacteria Few A (None Seen) /HPF Urine Culture Reflexed NO (NO) - Progress Progress: improved Progress Note: 02/20/23 17:06 Nursing note and vital signs reviewed No food or housing insecurities noted 30mg IM Toradol w mild relief in pain Lab result reviewed and shared w pt CT result reviewed and shared w pt Counseled pt/family regarding: diagnosis, need for follow-up, rad results Medical Desision Making - Diagnostic Testing Diagnostic test were ordered, analyzed, and reviewed by me: Yes Radiological Interpretation: Reviewed by me, Discussed w/ radiologist - Risk of complications Minimal Risk: Minimal risk of morbidity - Departure Departure Disposition: Home Clinical Impression: Lumbar strain Condition: Stable Critical Care Time: No Referrals: ALLAN NDIAYE [Primary Care Provider] - Follow up/PCP as directed Instructions: Low Back Pain (DC) Additional Instructions: Rest/Heat/massage Toradol/Norflex as needed for pain No lifting over 10 pounds for 5 days Follow up with your family MD Return to ER for worsening of condition Forms: Work/School Release Form Prescriptions: Orphenadrine Citrate 100 mg [Norflex 100 MG Tablet] 100 mg PO BID PRN PRN #14 tab PRN Reason: Pain Ketorolac Trometh 10 mg Tab [TORAdol 10 MG TABLET] 10 mg PO TID PRN PRN #10 tablet PRN Reason: Pain
[2023-02-20 14:05] LABS: Appearance Clear (Clear); Bacteria Few /HPF (None Seen); Bilirubin Negative (Negative); Blood Negative (Negative); Epithelial Cells Rare /HPF (None Seen); Glucose, Urine >=1000 mg/dL (Negative); Hyaline Casts NONE SEEN /LPF (0-2); Ketones 15 (Negative); Leukocyte Esterase Negative (Negative); Nitrite Negative (Negative); Ph 5.5 (4.6-8.0); Protein,Urine Dip Trace (Negative); RBC 0-2 /HPF (0-5); Specific Gravity >=1.030 (1.005-1.030); Urobilinogen 0.2 mg/dL (0.2)
[2023-02-20 14:09] LABS: ADD URINE CULTURE? NO (NO)
--- NOTE | 2023-02-20 15:02 | XRAY ---
Indication: Low back pain. No known injury. Multiple contiguous axial images obtained through the lumbar spine. Sagittal and coronal reformatted images obtained. Comparison: March 18, 2018 Axial images again demonstrates L5-S1 broad-based disc bulge producing bilateral foraminal narrowing. Remaining levels negative for acute fracture, suspicious bony lesions, or spinal canal stenosis. Facets are symmetric. Sagittal and coronal reformatted images demonstrates normal lumbar alignment stable L5-S1 disc space loss with vacuum disc phenomena. No acute compression fracture or subluxation. Visualized noncontrasted soft tissues demonstrate minimal aortic calcifications without AAA. Impression: Stable L5-S1 degenerative disc disease. Remaining CT lumbar spine is negative.
[2023-02-20 15:08] VITALS: BP 122/90; PULSE 114; O2SAT 98
== END 2023-02-20 15:23 | disposition home or self-care (01) ==
LOC: ED 13:20
DX: S39.012A Strain of muscle, fascia and tendon of lower back, initial encounter (principal); E78.5 Hyperlipidemia, unspecified; E11.9 Type 2 diabetes mellitus without complications; Z28.310 Unvaccinated for COVID-19; Z72.0 Tobacco use
CPT/HCPCS: 72131; 81001; 96372; 99283; J1885

== ENCOUNTER 2024-08-17 14:15 | Emergency (ER) | payer BC, OTHER ==
[2024-08-17 14:54] VITALS: TEMP 98.1
[2024-08-17] MEDS ORDERED: Augmentin 875-125 Tablet ONE (15:10)
[2024-08-17] MEDS ORDERED: TORAdol 30 mg Injection ONE (15:10)
[2024-08-17] MEDS: TORAdol 30 mg Injection IM ONE (15:10)
[2024-08-17] MEDS: Augmentin 875-125 Tablet PO ONE (15:11)
[2024-08-17] MEDS ORDERED: NORCO 5/325 MG ONE (15:45)
[2024-08-17] MEDS: NORCO 5/325 MG PO ONE (15:46)
--- NOTE | 2024-08-17 15:48 | ERPHSYRPT ---
- History of Present Illness Time Seen by Provider: 08/17/24 14:49 Source: patient Exam Limitations: no limitations Patient Subjective Stated Complaint: Dental pain Triage Nursing Assessment: Patient ambulated back to ED and transferred self to bed. Patient A+O X 3. Patient's skin pink, warm and dry. Patient complains of abscess to left upper mouth. Patient has decaying tooth on left upper gum with abscess above decaying tooth. Patient complains of pain 8/10. Physician History: 48 years old female with history of periodontal disease, dental caries with multiple eruptions presented in the ER with 2 days history of left upper anterior incisor area gum swelling and pain moderate to severe sharp throbbing. No fever or chills reported. Swelling is worsening since yesterday evening. Allergies/Adverse Reactions: tomato Allergy (Verified 08/17/24 14:23) Home Medications: Tramadol HCl 50 mg [Ultram 50 mg] 1 tab PO DAILY 08/17/24 [History] Hx Tetanus, Diphtheria Vaccination/Date Given: Yes Hx Influenza Vaccination/Date Given: No Hx Pneumococcal Vaccination/Date Given: No Immunizations Up to Date: Yes Travel Risk - International Travel Have you traveled outside of the country in past 3 weeks: No - Emerging Infectious Disease Are you exhibiting symptoms associated with any current EIDs: No - Review of Systems Constitutional: No Symptoms Eyes: No Symptoms Ears, Nose, & Throat: Mouth Swelling, Loose Teeth Respiratory: No Symptoms Cardiac: No Symptoms Musculoskeletal: No Symptoms Skin: No Symptoms Neurological: No Symptoms - Past Medical History Pertinent Past Medical History: Yes Neurological History: No Pertinent History ENT History: No Pertinent History Cardiac History: High Cholesterol, Other Respiratory History: No Pertinent History Endocrine Medical History: Diabetes Type II Musculoskeletal History: Rheumatoid Arthritis GI Medical History: No Pertinent History History: No Pertinent History Psycho-Social History: No Pertinent History Female Reproductive Disorders: No Pertinent History Other Medical History: "Minor Cardiac Event" , Multiple Broken Noses - Past Surgical History Past Surgical History: Yes Neuro Surgical History: No Pertinent History Cardiac: No Pertinent History Respiratory: No Pertinent History Gastrointestinal: No Pertinent History Genitourinary: No Pertinent History Musculoskeletal: No Pertinent History Female Surgical History: Tubal Ligation Other Surgical History: oral surgery, Surgical removal of impacted teeth, Ear drum cauterization x3 (ages 6-11 years) Significant Family History: hypertension (mother) - Female History Hx Last Menstrual Period: Last month Hx Now: No - Social History Smoking Status: Current every day smoker How long have you smoked: 29 years Exposure to second hand smoke: Yes Drug Use: marijuana Patient Lives Alone: No - Social Determinants of Health Will the patient participate in the screening: Yes Do you worry about a steady place to live?: No Do you have any problems with any of the following?: No known problems In the past 12 months,have you had to go without utilities?: No Transportation Issues: No Has anyone in your support network made you feel unsafe?: No Have you or anyone in your house had to go without enough: No - Nursing Vital Signs Nursing Vital Signs: Initial Vital Signs Temperature 98.1 F 08/17/24 14:27 Pulse Rate 107 H 08/17/24 14:27 Respiratory Rate 20 08/17/24 14:27 Blood Pressure 151/86 08/17/24 14:27 O2 Sat by Pulse Oximetry 99 08/17/24 14:27 Pain Scale Pain Intensity 8 - Physical Exam General Appearance: no apparent distress Eye Exam: bilateral eye: normal inspection, PERRL, EOMI Ear Exam: bilateral ear: auricle normal, canal normal, TM normal Nasal Exam: normal inspection Throat Exam: pharynx normal, dental tenderness (Dental caries with periodontal disease, 2 x 2 cm swelling above left central incisor, positive fluctuation) Neck Exam: normal inspection, non-tender, supple Cardiovascular/Respiratory Exam: normal breath sounds, regular rate/rhythm Neurologic Exam: alert, oriented x 3, cooperative, 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 Skin Exam: normal color SpO2 Interpretation: normal SpO2: 99 O2 Delivery: Room Air Procedures - Incision and Drainage Time of Procedure: 15:32 Timeout: Performed Site: Left upper anterior mouth/gums Blade Size: other (18-gauge needle) I & D Procedure: betadine prep Results: moderate amount pus Progress: Tolerated procedure very well Ordered Tests: Medication Summary Discontinued Medications Generic Name Dose Route Start Last Admin Trade Name Freq PRN Reason Stop Dose Admin Hydrocodone Bitart/Acetaminophen 2 tab 08/17/24 15:42 08/17/24 15:46 Hydrocodone/Apap 5/325 1 Tab Tablet PO 08/17/24 15:43 2 tab STAT ONE Administration Hydrocodone Bitart/Acetaminophen Confirm 08/17/24 15:45 Hydrocodone/Apap 5/325 1 Tab Tablet Administered 08/17/24 15:46 Dose 2 tab .ROUTE .STK-MED ONE Amoxicillin/Clavulanate Potassium 875 mg 08/17/24 15:02 08/17/24 15:11 Amox Tr/Potassium Clavulanate 875 Mg Tablet PO 08/17/24 15:03 875 mg STAT ONE Administration Amoxicillin/Clavulanate Potassium Confirm 08/17/24 15:10 Amox Tr/Potassium Clavulanate 875 Mg Tablet Administered 08/17/24 15:11 Dose 875 mg .ROUTE .STK-MED ONE Ketorolac Tromethamine 30 mg 08/17/24 15:02 08/17/24 15:10 Ketorolac Tromethamine 30 Mg/Ml Inj IM 08/17/24 15:03 30 mg STAT ONE Administration Ketorolac Tromethamine Confirm 08/17/24 15:10 Ketorolac Tromethamine 30 Mg/Ml Inj Administered 08/17/24 15:11 Dose 30 mg .ROUTE .STK-MED ONE - Progress Progress: improved Progress Note: 08/17/24 15:52 48 years old with multiple dental caries and periodontal disease is evaluated for left upper gum swelling with positive fluctuation. No fever. After informed consent needle I&D is done with decompression of the swelling with drainage of moderate amount of pus. Started on Augmentin and given symptomatic treatment for pain and here. Recommended outpatient dental follow-up. Discussed signs symptoms of worsening needing return to ER which she seems understanding. Stable for discharge. Counseled pt/family regarding: diagnosis, need for follow-up Medical Desision Making - Risk of complications The pt has a mod risk of morbidity or mortality based on: Need for prescription drug management, Need for minor surgical intervention in patient with know risk factors - Departure Departure Disposition: Home Clinical Impression: Dental abscess Condition: Stable Critical Care Time: No Referrals: DOCTOR,NO FAMILY [Primary Care Provider] - Follow up/PCP as directed Instructions: Tooth Abscess (DC) Additional Instructions: Follow-up with your primary care and dentist for reevaluation early next week. Take Tylenol/ibuprofen as needed for pain. Return to ER for increased swelling or if develop fever chills, excruciating pain etc. Prescriptions: Ibuprofen 600 mg PO Q6HPRN PRN 10 Days #20 tablet PRN Reason: Pain Amox Tr/Potass Clav. 875 mg [Augmentin 875-125 Tablet] 875 mg PO BID #14 tablet
[2024-08-17 16:04] VITALS: BP 151/82; PULSE 98; RESP 18; O2SAT 100
== END 2024-08-17 16:04 | disposition home or self-care (01) ==
LOC: ED 14:15
DX: K04.7 Periapical abscess without sinus (principal); K08.89 Other specified disorders of teeth and supporting structures; E78.5 Hyperlipidemia, unspecified; E11.9 Type 2 diabetes mellitus without complications; Z79.891 Long term (current) use of opiate analgesic; Z72.0 Tobacco use
CPT/HCPCS: 41800; 96372; 99283; J1885; A9270-GY